=== PATIENT | male | born 1940 | race Caucasian/White ===

== ENCOUNTER 2018-05-16 17:15 | Observation (INO) ==
--- NOTE | 2018-05-16 18:31 | ED ---
HPI General Chief Complaint: Chest Pain Stated Complaint: chest pain Time Seen by Provider: 05/16/18 18:16 Source: patient and family Mode of arrival: ambulatory Limitations: no limitations History of Present Illness HPI narrative: Patient is a 77-year-old male presenting to the emergency room for evaluation of chest pain. Patient states that he was working in his yard around 10 AM this morning, shortly thereafter he developed a midsternal chest pain that radiates across his anterior chest wall. Patient denies any radiation to his arm or jaw, no diaphoresis, no nausea, no abdominal pain, no back pain, no headache or dizziness. He reports that the pain is a 2 out of 10 now. Pain is worse with exertion. Patient states that he feels short of breath when he exerts himself however this is his baseline. Patient reports a history of aortic stenosis, hypertension, hyperlipidemia, diabetes. Patient is followed by Dr. Pitts. complaint: chest pain Complete Quality Measures for STEMI Alert Patients STEMI Alert: No Onset (ago): hour(s) Duration: constant Onset: during exertion Pain location: substernal, left chest and right chest Severity: moderate Severity scale (1-10): 2 Quality: tightness Relieving factors: nothing Exacerbating factors: exertion Treatments prior to arrival chest pain: aspirin (81 mg) Related Data Home Medications Medication Instructions Recorded Confirmed albuterol sulfate [Ventolin HFA] 2 puff INHALATION Q4H PRN 05/16/18 05/16/18 allopurinol 100 mg PO BID 05/16/18 05/16/18 amoxicillin-pot clavulanate 1 tab PO Q12H 05/16/18 05/16/18 [Augmentin] ascorbic acid (vitamin C) [Vitamin 500 mg PO BID 05/16/18 05/16/18 C] aspirin 81 mg PO DAILY 05/16/18 05/16/18 atorvastatin [Lipitor] 20 mg PO DAILY 05/16/18 05/16/18 coenzyme Q10 [Co Q-10] 100 mg PO DAILY 05/16/18 05/16/18 losartan 100 mg PO DAILY 05/16/18 05/16/18 magnesium 200 mg PO DAILY 05/16/18 05/16/18 metformin 1,000 mg PO BID 05/16/18 05/16/18 zinc gluconate 30 mg PO DAILY 05/16/18 05/16/18 Allergies Allergy/AdvReac Type Severity Reaction Status Date / Time No Known Allergies Allergy Uncoded 08/14/16 01:32 Review of Systems ROS: all other systems reviewed are negative [facility] Medical History Medical History Aortic stenosis (Acute) Diabetes type 2, controlled (Acute) Gout (Acute) Hypercholesteremia (Acute) Hypertension (Acute) Skin cancer (Acute) Surgical History Surgical History Hx of tonsillectomy (Acute) Social History Social History Substance History: No History of Abuse Second Hand Smoke Exposure: No Smoking Status: Former smoker Tobacco Type: Cigarettes How Often Do You Have a Drink Containing Alcohol: 4 or more times a week Recent Travel in [facility] within the Last 8 Weeks: No Recent Out of Country Travel within the Last 8 Weeks: No Immunization History Tetanus Immunization: >5 Years Hx Influenza Vaccine This Season: No Exam Narrative Exam Narrative: GENERAL: Overweight, well-developed, alert elderly gentleman. Presenting in no acute distress. SKIN: Focused skin assessment warm/dry. HEAD: Atraumatic. Normocephalic. EYES: Pupils equal and round. No scleral icterus. No injection or drainage. ENT: No nasal bleeding or discharge. Mucous membranes pink and moist. NECK: Trachea midline. No JVD. CARDIOVASCULAR: Regular rate and rhythm. 3/6 systolic murmur appreciated. RESPIRATORY: No accessory muscle use. Clear to auscultation. Breath sounds equal bilaterally. GASTROINTESTINAL: Abdomen soft, non-tender, nondistended. Hepatic and splenic margins not palpable. MUSCULOSKELETAL: No obvious deformities. No clubbing. No cyanosis. No edema. NEUROLOGICAL: Awake and alert. No obvious cranial nerve deficits. Motor grossly within normal limits. Normal speech. PSYCHIATRIC: Appropriate mood and affect; insight and judgment normal. Course Initial Documented Vital Signs Temperature 98.5 F 05/16/18 17:30 Pulse Rate 78 05/16/18 17:30 Respiratory Rate 13 05/16/18 17:30 Blood Pressure 161/67 H 05/16/18 17:30 Pulse Oximetry 97 05/16/18 17:30 Last Documented Vital Signs Temperature 98.5 F 05/16/18 17:30 Pulse Rate 74 05/16/18 19:30 Respiratory Rate 18 05/16/18 19:30 Blood Pressure 161/72 H 05/16/18 19:30 Pulse Oximetry 97 05/16/18 19:30 Medical Decision Making MDM Narrative Medical decision making narrative: Patient is well-appearing 77-year-old male presenting for evaluation of chest pain that started after he was doing yard work this morning. Patient's vital signs are stable, labs and imaging ordered and pending. IV access is established he was placed on telemetry monitoring and continuous pulse oximetry. Labs reviewed, no acute findings identified. Chest x-ray shows no acute disease. Patient was placed in the chest pain center for further observation. Plan of care was discussed with my attending physician. Admit orders placed. Patient and advised on plan of care and are agreeable. Medical Screen Exam Complete: Yes Emergency Medical Condition: Yes Differential Diagnosis Differential Diagnosis: ACS versus USA versus bronchitis versus pneumonia versus arrhythmia versus metabolic abnormality versus other Medical Records Medical records reviewed: Yes I reviewed the patient's medical records. Lab Data Lab results reviewed: Yes I reviewed the patient's lab results. Result diagrams: 05/16/18 18:00 05/16/18 18:00 Lab Results 05/16/18 05/16/18 05/16/18 Range/Units 18:00 18:00 18:00 WBC 9.1 (4.0-11.0) th/mm3 RBC 4.47 L (4.50-5.90) mil/mm3 Hgb 14.2 (13.0-17.0) gm/dL Hct 41.7 (39.0-51.0) % MCV 93.4 (80.0-100.0) fL MCH 31.7 (27.0-34.0) pg MCHC 33.9 (32.0-36.0) % RDW 14.0 (11.6-17.2) % Plt Count 255 (150-450) th/mm3 MPV 7.3 (7.0-11.0) fL Neut % (Auto) 66.8 (16.0-70.0) % Lymph % (Auto) 17.9 (9.0-44.0) % Brown % (Auto) 8.2 H (0.0-8.0) % Eos % (Auto) 6.2 H (0.0-4.0) % Baso % (Auto) 0.9 (0.0-2.0) % Neut # (Auto) 6.1 (1.8-7.7) th/mm3 Lymph # (Auto) 1.6 (1.0-4.8) th/mm3 Brown # (Auto) 0.7 (0.0-0.9) th/mm3 Eos # (Auto) 0.6 H (0.0-0.4) th/mm3 Baso # (Auto) 0.1 (0.0-0.2) th/mm3 WBC Differential . Differential Comment Auto diff final PT 10.6 (9.8-11.6) sec INR 1.0 Ratio APTT 27.3 (24.3-30.1) sec Sodium 139 (136-145) meq/L Potassium 4.3 (3.5-5.1) meq/L Chloride 105 (98-107) meq/L Carbon Dioxide 29.5 (21.0-32.0) meq/L Anion Gap 5 (5-15) meq/L BUN 20 H (7-18) mg/dL Creatinine 1.20 (0.60-1.30) mg/dL Estimated GFR 59 L (>89) mL/min Random Glucose 109 H (74-106) mg/dL Calcium 9.7 (8.5-10.1) mg/dL Magnesium 2.2 (1.5-2.5) mg/dL Total Bilirubin 0.4 (0.2-1.0) mg/dL AST 18 (15-37) U/L ALT 24 (12-78) U/L Alkaline Phosphatase 55 (45-117) U/L Total Creatine Kinase 285 (39-308) U/L CK-MB (CK-2) 3.7 H (0.5-3.6) ng/mL Troponin I Less than 0.02 L (0.02-0.05) ng/mL Total Protein 7.9 (6.4-8.2) g/dL Albumin 4.1 (3.4-5.0) g/dL Lipase 107 (73-393) U/L Imaging Data Radiologist's impression: Chest X-Ray 05/16/18 17:56 CONCLUSION: The lungs are clear. Discharge Plan Discharge Disposition Patient Disposition: 30 Still Patient Discharge Condition Condition: Stable Discharge Details Diagnosis: Atypical chest pain Physicians Team ED Provider: Patricia Cabrera ED Midlevel Provider: Mikala Andrews Primary Care Provider: David Barfield Rxs /Orders / Referrals /Forms Prescriptions: No Action metformin 500 mg Tablet 1,000 mg PO BID RF: 0 atorvastatin [Lipitor] 20 mg Tablet 20 mg PO DAILY RF: 0 allopurinol 100 mg Tablet 100 mg PO BID RF: 0 zinc gluconate 10 mg Lozenge 30 mg PO DAILY RF: 0 ascorbic acid (vitamin C) [Vitamin C] 500 mg Tablet 500 mg PO BID RF: 0 aspirin 81 mg Tablet,Chewable 81 mg PO DAILY RF: 0 albuterol sulfate [Ventolin HFA] 90 mcg/actuation Hfa Aerosol Inhaler 2 puff INHALATION Q4H PRN (Reason: Shortness Of Breath) RF: 0 losartan 100 mg Tablet 100 mg PO DAILY RF: 0 amoxicillin-pot clavulanate [Augmentin] 875-125 mg Tablet 1 tab PO Q12H RF: 0 magnesium 200 mg Tablet 200 mg PO DAILY RF: 0 coenzyme Q10 [Co Q-10] 100 mg Capsule 100 mg PO DAILY RF: 0 Discharge Instructions Patient Printed Instructions: Chest Pain (ED) Discharge Interventions Interventions: Vital Signs Last Done: 05/16/18 18:11 Status ED Status: Admitted Observation Patient
[2018-05-16 18:34] LABS: Baso # (Auto) 0.1 th/mm3 (0.0-0.2); Baso % (Auto) 0.9 % (0.0-2.0); Eos # (Auto) 0.6 th/mm3 (0.0-0.4); Eos % (Auto) 6.2 % (0.0-4.0); Hematocrit 41.7 % (39.0-51.0); Hemoglobin 14.2 gm/dL (13.0-17.0); Lymph # (Auto) 1.6 th/mm3 (1.0-4.8); Lymph % (Auto) 17.9 % (9.0-44.0); Mean Corpuscular HGB Conc 33.9 % (32.0-36.0); Mean Corpuscular Hemoglobin 31.7 pg (27.0-34.0); Mean Corpuscular Volume 93.4 fL (80.0-100.0); Mean Platelet Volume 7.3 fL (7.0-11.0); Mono # (Auto) 0.7 th/mm3 (0.0-0.9); Mono % (Auto) 8.2 % (0.0-8.0); Neut # (Auto) 6.1 th/mm3 (1.8-7.7); Neut % (Auto) 66.8 % (16.0-70.0); Platelet Count 255 th/mm3 (150-450); Red Blood Count 4.47 mil/mm3 (4.50-5.90); White Blood Count 9.1 th/mm3 (4.0-11.0)
[2018-05-16 18:48] LABS: Activated Partial Thrombo Time 27.3 sec (24.3-30.1); Prothrombin Time 10.6 sec (9.8-11.6)
[2018-05-16 19:00] LABS: Alanine Aminotransferase 24 U/L (12-78); Albumin 4.1 g/dL (3.4-5.0); Anion Gap 5 meq/L (5-15); Aspartate Aminotransferase 18 U/L (15-37); Blood Urea Nitrogen 20 mg/dL (7-18); Calcium 9.7 mg/dL (8.5-10.1); Carbon Dioxide 29.5 meq/L (21.0-32.0); Chloride 105 meq/L (98-107); Glomerular Filtration Rate 59 mL/min (>89); Glucose,Random 109 mg/dL (74-106); Lipase 107 U/L (73-393); Magnesium 2.2 mg/dL (1.5-2.5); Potassium 4.3 meq/L (3.5-5.1); Sodium 139 meq/L (136-145)
[2018-05-16 19:04] LABS: Alkaline Phosphatase 55 U/L (45-117); Creatine Kinase 285 U/L (39-308); Total Protein 7.9 g/dL (6.4-8.2)
--- NOTE | 2018-05-16 19:07 | XR ---
EXAM DATE: 05/16/2018 6:47 PM EDT AGE/SEX: 77 years / Male INDICATIONS: Chest pain. CLINICAL DATA: This is the patient's initial encounter. Patient reports that signs and symptoms have been present for 1 day and indicates a pain score of 5/10. MEDICAL/SURGICAL HISTORY: . Hypertension. Diabetes mellitus type II. None. COMPARISON: POI, XR CHEST PA AND LAT, 04/04/2018. . FINDINGS: A single AP view of the chest demonstrates the lungs to be symmetrically aerated without evidence of mass, infiltrate or effusion. The cardiomediastinal contours are unremarkable. Osseous structures a re intact. CONCLUSION: The lungs are clear. Electronically signed by: Jameson Haq MD 05/16/2018 7:06 PM EDT
[2018-05-16 19:16] LABS: Creatine Kinase MB 3.7 ng/mL (0.5-3.6)
[2018-05-16] MEDS ORDERED: Acetaminophen 500 MG Tablet PO PRN (20:02)
[2018-05-16] MEDS ORDERED: Iohexol 350 MG/ML 100 ML Vial (for Cath Lab) IVCONTRAST ONE (20:04)
[2018-05-17 01:04] LABS: Creatine Kinase 259 U/L (39-308)
[2018-05-17 05:03] LABS: Troponin I 0.02 ng/mL (0.02-0.05)
--- NOTE | 2018-05-17 08:23 | ECG ---
Date Performed: 05/16/2018 Time Performed: 18:00:06 PTAGE: 77 years EKG: Sinus rhythm NONSPECIFIC T-WAVE ABNORMALITY BORDERLINE ECG Since PREVIOUS TRACING , no significant change noted DOCTOR: Tracy Rodriguez Interpretating Date/Time 05/17/2018 08:22:30
--- NOTE | 2018-05-17 08:27 | ECG ---
Date Performed: 05/17/2018 Time Performed: 04:53:02 PTAGE: 77 years EKG: Sinus rhythm NONSPECIFIC T-WAVE ABNORMALITY ABNORMAL ECG Since PREVIOUS TRACING , no significant change noted PREVIOUS TRACIN05/16/2018 18.00 DOCTOR: Tracy Rodriguez Interpretating Date/Time 05/17/2018 08:26:09
[2018-05-17] MEDS ORDERED: Non-Formulary Drug (Losartan [Losartan] 100 MG) PO SCH (09:00)
[2018-05-17] MEDS ORDERED: Aspirin 325 MG Tablet PO SCH (09:00)
--- NOTE | 2018-05-17 09:26 | P.HPCA ---
<Rich Castillo - Last Filed: 05/17/18 09:18> History of Present Illness Primary Care Physician: David Barfield MD Chief Complaint: Chest pain History of Present Illness: This is a 77-year-old male the presents to ED with a stated history of severe aortic stenosis presents to ED with complaint of chest discomfort. Patient states he has been followed by Dr. Pitts for the aortic stenosis. States that he has been getting short of breath for some time with exertion or with activities but never chest discomfort. Yesterday was the first time he developed a tightness in his chest. States is across the chest after he is doing some yard work. States lasted for a few hours. Shortness of breath was worsened. States he has not had recent stress testing. Cannot recall prior cardiac catheterization. Has had recent echo and states that revealed severe aortic stenosis. There is family history of CAD. Patient does not smoke. - Diagnosis (1) Chest pain (2) Aortic stenosis (3) Hypertension (4) Hyperlipidemia (5) Diabetes Review of Systems General: Patient denies fevers, chills, and recent travel. HEENT: Patient denies headache, sore throat, difficulty swallowing. Cardiovascular: Has the chest discomfort as mentioned above. Denies sensation of heart beating rapidly or irregularly. No syncope. Denies diaphoresis. Respiratory: Shortness of breath with activity. Denies inspirational chest discomfort. Denies coughing wheezing or hemoptysis. GI: Patient denies nausea, vomiting, diarrhea, abdominal pain, bloody stools. Musculoskeletal: Patient denies joint pain or edema. Denies calf pain or edema. Neurovascular: Patient denies numbness, tingling, weakness in extremities. Denies headache. Endocrine: Denies polyuria and polydipsia. Hematologic: Denies easy bruising. Skin: Denies rash or itching. PMFSH - History History Provided By: Patient - Medical History Medical History: Medical History (Last Reviewed 05/16/18 @ 18:53 by DANIA Maki) Aortic stenosis Diabetes type 2, controlled Gout Hypercholesteremia Hypertension Skin cancer - Surgical History Surgical History: Surgical History (Last Reviewed 05/16/18 @ 18:53 by DANIA Maki) Hx of tonsillectomy - Tobacco History Second Hand Smoke Exposure: No Tobacco Use In Past 30 Days: No Smoking Status: Former smoker Tobacco Type: Cigarettes - Alcohol History How Often Do You Have a Drink Containing Alcohol: 4 or more times a week - Substance Use History Substance History: No History of Abuse - Travel History Recent Travel in the [place] Within the Last 8 Weeks: No Recent Travel Out of the Country Within the Last 8 Weeks: No - Immunization History Tetanus Immunization: >5 Years Hx Influenza Vaccine This Season: No Medications and Allergies Allergies Allergy/AdvReac Type Severity Reaction Status Date / Time No Known Allergies Allergy Uncoded 08/14/16 01:32 Home Medications Medication Instructions Recorded Confirmed Type allopurinol 100 mg PO BID 05/16/18 05/16/18 History ascorbic acid (vitamin C) [Vitamin 500 mg PO BID 05/16/18 05/16/18 History C] aspirin 81 mg PO DAILY 05/16/18 05/16/18 History atorvastatin [Lipitor] 20 mg PO HS 05/16/18 05/17/18 History coenzyme Q10 [Co Q-10] 100 mg PO DAILY 05/16/18 05/16/18 History losartan 100 mg PO DAILY 05/16/18 05/16/18 History magnesium 200 mg PO DAILY 05/16/18 05/16/18 History metformin 1,000 mg PO BID 05/16/18 05/16/18 History zinc gluconate 30 mg PO DAILY 05/16/18 05/16/18 History Active Medications: Active Medications Acetaminophen (Tylenol) 500 mg PO Q4H PRN PRN Reason: HEADACHE Aspirin (Aspirin) 325 mg PO DAILY [facility] Atorvastatin Calcium (Lipitor) 20 mg PO DAILY [facility] Last Admin: 05/17/18 08:58 Dose: Not Given Insulin Human Regular (Novolin R Correctional Sugar Inj) 0 units SQ ACHS [facility]; Protocol Nitroglycerin (Nitrostat Sl) 0.4 mg SL Q5M PRN PRN Reason: CHEST PAIN Non-Formulary Medication (Losartan [Losartan]) 100 mg PO DAILY [facility] Ondansetron HCl (Zofran Inj) 4 mg IV.PUSH Q6H PRN PRN Reason: NAUSEA Pantoprazole Sodium (Protonix) 40 mg PO DAILY [facility] Last Admin: 05/17/18 08:51 Dose: 40 mg Sodium Chloride (Ns Flush) 2 ml IV.FLUSH UNSCH PRN PRN Reason: FLUSH AFTER USING IV ACCESS Sodium Chloride (Ns Flush) 2 ml IV.FLUSH BID [facility] Last Admin: 05/17/18 08:52 Dose: 2 ml Sodium Chloride (Ns Flush) 2 ml IV.FLUSH PRN PRN PRN Reason: FLUSH AFTER USING IV ACCESS Exam Vital signs: Vital Signs 05/16/18 17:30 05/16/18 17:32 05/16/18 18:02 Temperature 98.5 F Pulse Rate 78 77 Respiratory Rate 13 18 Blood Pressure 161/67 H 144/82 H Pulse Oximetry 97 96 96 05/16/18 18:11 05/16/18 19:30 05/17/18 00:00 Temperature 97.6 F Pulse Rate 76 74 71 Respiratory Rate 18 18 18 Blood Pressure 144/82 H 161/72 H 175/73 H Pulse Oximetry 96 97 95 05/17/18 04:00 05/17/18 08:15 Temperature 98.2 F 98.0 F Pulse Rate 63 76 Respiratory Rate 16 16 Blood Pressure 137/63 142/66 H Pulse Oximetry 98 98 Intake & Output 05/16/18 05/17/18 05/17/18 18:59 06:59 18:59 Intake Total 0 / 0 Balance 0 / 0 Weight 106.141 kg Intake: Oral 0 / 0 Other: # Voids 1 Weight On Admission 106.141 kg Narrative: GENERAL: This is a well-nourished, well-developed patient, in no apparent distress. Patient speaks in clear complete sentences. Patient is pleasant. HEENT: Head is atraumatic and normocephalic. Neck is supple without lymphadenopathy and trachea is midline. No JVD or carotid bruits. CARDIOVASCULAR: Grade 4 to 5 aortic murmur. Regular rate and rhythm without gallops, or rubs. RESPIRATORY: Clear to auscultation. Breath sounds equal bilaterally. No wheezes , rales, or rhonchi. Chest wall is nontender. No use of accessory muscles. GASTROINTESTINAL: Abdomen is nontender, nondistended. Abdomen soft. No obvious pulsatile mass or bruit. No CVA tenderness. Strong femoral pulses bilaterally. Normal bowel sounds in all quadrants. MUSCULOSKELETAL: Patient is moving upper and lower extremities freely. No calf tenderness or edema, no Homans sign. Strong pulses in upper and lower extremities. NEUROLOGICAL: Patient is alert and oriented. Cranial nerves 2-12 are grossly intact. No focal deficits and speech is clear. SKIN: No rash and turgor is normal. Results 05/16/18 18:00 05/16/18 18:00 Cardiac Enzymes 05/16/18 05/17/18 05/17/18 Range/Units 18:00 00:23 04:30 AST 18 (15-37) U/L CK-MB (CK-2) 3.7 H (0.5-3.6) ng/mL Troponin I Less than 0.02 L Less than 0.02 L 0.02 (0.02-0.05) ng/mL Coagulation 05/16/18 Range/Units 18:00 PT 10.6 (9.8-11.6) sec APTT 27.3 (24.3-30.1) sec CBC 05/16/18 Range/Units 18:00 WBC 9.1 (4.0-11.0) th/mm3 RBC 4.47 L (4.50-5.90) mil/mm3 Hgb 14.2 (13.0-17.0) gm/dL Hct 41.7 (39.0-51.0) % Plt Count 255 (150-450) th/mm3 Neut # (Auto) 6.1 (1.8-7.7) th/mm3 Lymph # (Auto) 1.6 (1.0-4.8) th/mm3 Logan # (Auto) 0.7 (0.0-0.9) th/mm3 Eos # (Auto) 0.6 H (0.0-0.4) th/mm3 Baso # (Auto) 0.1 (0.0-0.2) th/mm3 Comprehensive Metabolic Panel 05/16/18 Range/Units 18:00 Sodium 139 (136-145) meq/L Potassium 4.3 (3.5-5.1) meq/L Chloride 105 (98-107) meq/L Carbon Dioxide 29.5 (21.0-32.0) meq/L BUN 20 H (7-18) mg/dL Creatinine 1.20 (0.60-1.30) mg/dL Calcium 9.7 (8.5-10.1) mg/dL AST 18 (15-37) U/L ALT 24 (12-78) U/L Alkaline Phosphatase 55 (45-117) U/L Total Protein 7.9 (6.4-8.2) g/dL Albumin 4.1 (3.4-5.0) g/dL Intake and Output 05/16/18 05/17/18 05/17/18 22:59 06:59 14:59 Intake Total 0 / 0 Balance 0 / 0 Intake: Oral 0 / 0 Other: # Voids 1 Weight 106.141 kg Weight On Admission 106.141 kg EKG interpretations - EKG EKG shows: sinus rhythm (EKGs a sinus rhythm without significant ST segment depressions or elevations.) Caprini VTE Risk Assessment Caprini VTE Risk Assessment: Moderate/High Risk (score >= 2) Caprini Risk Assessment Model: Point Value = 1 Point Value = 2 Point Value = 3 Point Value = 5 Age 41-60 Minor surgery BMI > 25 kg/m2 Swollen legs Varicose veins or History of unexplained or recurrent spontaneous Oral contraceptives or hormone replacement Sepsis (< 1 month) Serious lung disease, including pneumonia (< 1 month) Abnormal pulmonary function Acute myocardial infarction Congestive heart failure (< 1 month) History of inflammatory bowel disease Medical patient at bed rest Age 61-74 Arthroscopic surgery Major open surgery (> 45 min) Laparoscopic surgery (> 45 min) Malignancy Confined to bed (> 72 hours) Immobilizing plaster cast Central venous access Age >= 75 History of VTE Family history of VTE Factor V Leiden Prothrombin [id number] Lupus anticoagulant Anticardiolipin antibodies Elevated serum homocysteine Heparin-induced thrombocytopenia Other congenital or acquired thrombophilia Stroke (< 1 month) Elective arthroplasty Hip, pelvis, or leg fracture Acute spinal cord injury (< 1 month) Prophylaxis Regimen: Total Risk Factor Score Risk Level Prophylaxis Regimen 0-1 Low Early ambulation 2 Moderate Order ONE of the following: *Sequential Compression Device (SCD) *Heparin 5000 units SQ BID 3-4 Higher Order ONE of the following medications: *Heparin 5000 units SQ TID *Enoxaparin/Lovenox 40 mg SQ daily (WT < 150 kg, CrCl > 30 mL/min) *Enoxaparin/Lovenox 30 mg SQ daily (WT < 150 kg, CrCl > 10-29 mL/min) *Enoxaparin/Lovenox 30 mg SQ BID (WT < 150 kg, CrCl > 30 mL/min) AND/OR *Sequential Compression Device (SCD) 5 or more Highest Order ONE of the following medications: *Heparin 5000 units SQ TID (Preferred with Epidurals) *Enoxaparin/Lovenox 40 mg SQ daily (WT < 150 kg, CrCl > 30 mL/min) *Enoxaparin/Lovenox 30 mg SQ daily (WT < 150 kg, CrCl > 10-29 mL/min) *Enoxaparin/Lovenox 30 mg SQ BID (WT < 150 kg, CrCl > 30 mL/min) AND *Sequential Compression Device (SCD) Assessment and Plan - Assessment (1) Chest pain Code(s): R07.9 - Chest pain, unspecified Status: Acute (2) Aortic stenosis Code(s): I35.0 - Nonrheumatic aortic (valve) stenosis Status: Acute (3) Hypertension Code(s): I10 - Essential (primary) hypertension Status: Acute (4) Hyperlipidemia Code(s): E78.5 - Hyperlipidemia, unspecified Status: Acute (5) Diabetes Code(s): E11.9 - Type 2 diabetes mellitus without complications Status: Acute - Plan * Chest pain: Patient has had serial cardiac enzymes and EKGs for ruling out purposes. He was seen by Dr. Rodriguez of cardiology in the chest pain center. He has severe aortic stenosis. Discussed with Dr. Pitts, patient will have a heart catheterization today and further plan pending that result. * Aortic stenosis: Patient will be evaluated by his [place] with heart catheterization today further plan pending 's evaluation. * Hypertension: Continue medication. * Hyperlipidemia: Continue medication. * Diabetes: Hold metformin. Have sliding scale insulin coverage. Patient is stable at this time. He is agreeable to this plan. <Sonia Pitts - Last Filed: 05/17/18 10:12> History of Present Illness Primary Care Physician: David Barfield MD [facility] - Medical History Medical History: Medical History (Last Reviewed 05/16/18 @ 18:53 by DANIA Maki) Aortic stenosis Diabetes type 2, controlled Gout Hypercholesteremia Hypertension Skin cancer - Surgical History Surgical History: Surgical History (Last Reviewed 05/16/18 @ 18:53 by DANIA Maki) Hx of tonsillectomy Medications and Allergies Active Medications: Active Medications Acetaminophen (Tylenol) 500 mg PO Q4H PRN PRN Reason: HEADACHE Aspirin (Aspirin) 325 mg PO DAILY [facility] Last Admin: 05/17/18 09:56 Dose: 325 mg Atorvastatin Calcium (Lipitor) 20 mg PO DAILY [facility] Last Admin: 05/17/18 08:58 Dose: Not Given Insulin Human Regular (Novolin R Correctional Sugar Inj) 0 units SQ ACHS [facility]; Protocol Losartan Potassium (Cozaar) 100 mg PO DAILY [facility] Last Admin: 05/17/18 09:55 Dose: 100 mg Nitroglycerin (Nitrostat Sl) 0.4 mg SL Q5M PRN PRN Reason: CHEST PAIN Ondansetron HCl (Zofran Inj) 4 mg IV.PUSH Q6H PRN PRN Reason: NAUSEA Pantoprazole Sodium (Protonix) 40 mg PO DAILY [facility] Last Admin: 05/17/18 08:51 Dose: 40 mg Sodium Chloride (Ns Flush) 2 ml IV.FLUSH UNSCH PRN PRN Reason: FLUSH AFTER USING IV ACCESS Sodium Chloride (Ns Flush) 2 ml IV.FLUSH BID [facility] Last Admin: 05/17/18 08:52 Dose: 2 ml Sodium Chloride (Ns Flush) 2 ml IV.FLUSH PRN PRN PRN Reason: FLUSH AFTER USING IV ACCESS Exam Vital signs: Vital Signs 05/16/18 17:30 05/16/18 17:32 05/16/18 18:02 Temperature 98.5 F Pulse Rate 78 77 Respiratory Rate 13 18 Blood Pressure 161/67 H 144/82 H Pulse Oximetry 97 96 96 05/16/18 18:11 05/16/18 19:30 05/17/18 00:00 Temperature 97.6 F Pulse Rate 76 74 71 Respiratory Rate 18 18 18 Blood Pressure 144/82 H 161/72 H 175/73 H Pulse Oximetry 96 97 95 05/17/18 04:00 05/17/18 08:15 Temperature 98.2 F 98.0 F Pulse Rate 63 76 Respiratory Rate 16 16 Blood Pressure 137/63 142/66 H Pulse Oximetry 98 98 Intake & Output 05/16/18 05/17/18 05/17/18 18:59 06:59 18:59 Intake Total 0 / 0 Balance 0 / 0 Weight 106.141 kg Intake: Oral 0 / 0 Other: # Voids 1 Weight On Admission 106.141 kg Results 05/16/18 18:00 05/16/18 18:00 Cardiac Enzymes 05/16/18 05/17/18 05/17/18 Range/Units 18:00 00:23 04:30 AST 18 (15-37) U/L CK-MB (CK-2) 3.7 H (0.5-3.6) ng/mL Troponin I Less than 0.02 L Less than 0.02 L 0.02 (0.02-0.05) ng/mL Coagulation 05/16/18 Range/Units 18:00 PT 10.6 (9.8-11.6) sec APTT 27.3 (24.3-30.1) sec CBC 05/16/18 Range/Units 18:00 WBC 9.1 (4.0-11.0) th/mm3 RBC 4.47 L (4.50-5.90) mil/mm3 Hgb 14.2 (13.0-17.0) gm/dL Hct 41.7 (39.0-51.0) % Plt Count 255 (150-450) th/mm3 Neut # (Auto) 6.1 (1.8-7.7) th/mm3 Lymph # (Auto) 1.6 (1.0-4.8) th/mm3 Logan # (Auto) 0.7 (0.0-0.9) th/mm3 Eos # (Auto) 0.6 H (0.0-0.4) th/mm3 Baso # (Auto) 0.1 (0.0-0.2) th/mm3 Comprehensive Metabolic Panel 05/16/18 Range/Units 18:00 Sodium 139 (136-145) meq/L Potassium 4.3 (3.5-5.1) meq/L Chloride 105 (98-107) meq/L Carbon Dioxide 29.5 (21.0-32.0) meq/L BUN 20 H (7-18) mg/dL Creatinine 1.20 (0.60-1.30) mg/dL Calcium 9.7 (8.5-10.1) mg/dL AST 18 (15-37) U/L ALT 24 (12-78) U/L Alkaline Phosphatase 55 (45-117) U/L Total Protein 7.9 (6.4-8.2) g/dL Albumin 4.1 (3.4-5.0) g/dL Intake and Output 05/16/18 05/17/1805/17/18 22:59 06:59 14:59 Intake Total 0 / 0 Balance 0 / 0 Intake: Oral 0 / 0 Other: # Voids 1 Weight 106.141 kg Weight On Admission 106.141 kg Caprini VTE Risk Assessment Caprini Risk Assessment Model: Point Value = 1 Point Value = 2 Point Value = 3 Point Value = 5 Age 41-60 Minor surgery BMI > 25 kg/m2 Swollen legs Varicose veins or History of unexplained or recurrent spontaneous Oral contraceptives or hormone replacement Sepsis (< 1 month) Serious lung disease, including pneumonia (< 1 month) Abnormal pulmonary function Acute myocardial infarction Congestive heart failure (< 1 month) History of inflammatory bowel disease Medical patient at bed rest Age 61-74 Arthroscopic surgery Major open surgery (> 45 min) Laparoscopic surgery (> 45 min) Malignancy Confined to bed (> 72 hours) Immobilizing plaster cast Central venous access Age >= 75 History of VTE Family history of VTE Factor V Leiden Prothrombin [id number] Lupus anticoagulant Anticardiolipin antibodies Elevated serum homocysteine Heparin-induced thrombocytopenia Other congenital or acquired thrombophilia Stroke (< 1 month) Elective arthroplasty Hip, pelvis, or leg fracture Acute spinal cord injury (< 1 month) Prophylaxis Regimen: Total Risk Factor Score Risk Level Prophylaxis Regimen 0-1 Low Early ambulation 2 Moderate Order ONE of the following: *Sequential Compression Device (SCD) *Heparin 5000 units SQ BID 3-4 Higher Order ONE of the following medications: *Heparin 5000 units SQ TID *Enoxaparin/Lovenox 40 mg SQ daily (WT < 150 kg, CrCl > 30 mL/min) *Enoxaparin/Lovenox 30 mg SQ daily (WT < 150 kg, CrCl > 10-29 mL/min) *Enoxaparin/Lovenox 30 mg SQ BID (WT < 150 kg, CrCl > 30 mL/min) AND/OR *Sequential Compression Device (SCD) 5 or more Highest Order ONE of the following medications: *Heparin 5000 units SQ TID (Preferred with Epidurals) *Enoxaparin/Lovenox 40 mg SQ daily (WT < 150 kg, CrCl > 30 mL/min) *Enoxaparin/Lovenox 30 mg SQ daily (WT < 150 kg, CrCl > 10-29 mL/min) *Enoxaparin/Lovenox 30 mg SQ BID (WT < 150 kg, CrCl > 30 mL/min) AND *Sequential Compression Device (SCD) Assessment and Plan - Plan Risk of cath reviewed in detail will proceed EUSE[employer] still having chest discomfort , understands risk of stroke etc.
--- NOTE | 2018-05-17 11:10 | P.CONCA ---
<Shade,December - Last Filed: 05/17/18 11:00> History of Present Illness Service: Cardiology Reason for Consult: Chest pain Primary Care Provider: David Barfield MD Chief Complaint: Chest pain History of Present Illness: Pleasant 77-year-old male known to our practice with a past cardiac history of heart murmur he was recently seen in my office and had an echocardiogram that revealed moderate to severe aortic stenosis, with an aortic valve area of 0.8 cm2, and an aortic valve max peak gradient of 58mmhg. He called our office yesterday stating that he was having some chest tightness that occurred after working outside, pain did not resolve with rest, he was instructed to go to the ER. Upon examination this morning patient reports having mild chest tightness. He denies any significant shortness of breath or bilateral lower extremity edema, he does have occasional dizziness. All options discussed in detail with patient including medical management verses heart catheterization and valve replacementvalve repair. Review of Systems All other systems reviewed negative except as stated in HPI Constitutional: Reports fatigue Cardiovascular: Reports chest pain, Reports chest pain at rest, Reports chest pain with activity, Reports lightheadedness PMFSH - History History Provided By: Patient - Medical History Medical History: Medical History (Last Reviewed 05/16/18 @ 18:53 by DANIA Maki) Aortic stenosis Diabetes type 2, controlled Gout Hypercholesteremia Hypertension Skin cancer - Surgical History Surgical History: Surgical History (Last Reviewed 05/16/18 @ 18:53 by DANIA Maki) Hx of tonsillectomy - Tobacco History Second Hand Smoke Exposure: No Tobacco Use In Past 30 Days: No Smoking Status: Former smoker Tobacco Type: Cigarettes - Alcohol History How Often Do You Have a Drink Containing Alcohol: 4 or more times a week - Substance Use History Substance History: No History of Abuse - Travel History Recent Travel in the [place] Within the Last 8 Weeks: No Recent Travel Out of the Country Within the Last 8 Weeks: No - Immunization History Tetanus Immunization: >5 Years Hx Influenza Vaccine This Season: No Medications and Allergies Allergies Allergy/AdvReac Type Severity Reaction Status Date / Time No Known Allergies Allergy Uncoded 08/14/16 01:32 Home Medications Medication Instructions Recorded Confirmed Type allopurinol 100 mg PO BID 05/16/18 05/16/18 History ascorbic acid (vitamin C) [Vitamin 500 mg PO BID 05/16/18 05/16/18 History C] aspirin 81 mg PO DAILY 05/16/18 05/16/18 History atorvastatin [Lipitor] 20 mg PO HS 05/16/18 05/17/18 History coenzyme Q10 [Co Q-10] 100 mg PO DAILY 05/16/18 05/16/18 History losartan 100 mg PO DAILY 05/16/18 05/16/18 History magnesium 200 mg PO DAILY 05/16/18 05/16/18 History metformin 1,000 mg PO BID 05/16/18 05/16/18 History zinc gluconate 30 mg PO DAILY 05/16/18 05/16/18 History Active Medications: Active Medications Acetaminophen (Tylenol) 500 mg PO Q4H PRN PRN Reason: HEADACHE Aspirin (Aspirin) 325 mg PO DAILY [facility] Last Admin: 05/17/18 09:56 Dose: 325 mg Atorvastatin Calcium (Lipitor) 20 mg PO DAILY [facility] Last Admin: 05/17/18 08:58 Dose: Not Given Insulin Human Regular (Novolin R Correctional Sugar Inj) 0 units SQ ACHS [facility]; Protocol Losartan Potassium (Cozaar) 100 mg PO DAILY [facility] Last Admin: 05/17/18 09:55 Dose: 100 mg Nitroglycerin (Nitrostat Sl) 0.4 mg SL Q5M PRN PRN Reason: CHEST PAIN Ondansetron HCl (Zofran Inj) 4 mg IV.PUSH Q6H PRN PRN Reason: NAUSEA Pantoprazole Sodium (Protonix) 40 mg PO DAILY [facility] Last Admin: 05/17/18 08:51 Dose: 40 mg Sodium Chloride (Ns Flush) 2 ml IV.FLUSH UNSCH PRN PRN Reason: FLUSH AFTER USING IV ACCESS Sodium Chloride (Ns Flush) 2 ml IV.FLUSH BID [facility] Last Admin: 05/17/18 08:52 Dose: 2 ml Sodium Chloride (Ns Flush) 2 ml IV.FLUSH PRN PRN PRN Reason: FLUSH AFTER USING IV ACCESS Exam Vital signs: Vital Signs 05/16/18 17:30 05/16/18 17:32 05/16/18 18:02 Temperature 98.5 F Pulse Rate 78 77 Respiratory Rate 13 18 Blood Pressure 161/67 H 144/82 H Pulse Oximetry 97 96 96 05/16/18 18:11 05/16/18 19:30 05/17/18 00:00 Temperature 97.6 F Pulse Rate 76 74 71 Respiratory Rate 18 18 18 Blood Pressure 144/82 H 161/72 H 175/73 H Pulse Oximetry 96 97 95 05/17/18 04:00 05/17/18 08:15 Temperature 98.2 F 98.0 F Pulse Rate 63 76 Respiratory Rate 16 16 Blood Pressure 137/63 142/66 H Pulse Oximetry 98 98 Intake & Output 05/16/18 05/17/18 05/17/18 18:59 06:59 18:59 Intake Total 0 / 0 Balance 0 / 0 Weight 106.141 kg Intake: Oral 0 / 0 Other: # Voids 1 Weight On Admission 106.141 kg - Constitutional no acute distress - Routine HEENT Exam Head: Present: normocephalic, atraumatic Eye: Present: PERRL, normal accommodation ENT: Present: mucous membranes moist - Routine Neck Exam Present: supple, full ROM - Routine Respiratory Exam Present: CTA bilaterally - Routine Cardiovascular Exam Present: RRR - Routine Abdominal Exam Present: soft - Routine Extremities Exam Present: full ROM - Routine Skin Exam Present: intact - Routine Neurological Exam Present: alert, oriented X3 Results 05/16/18 18:00 05/16/18 18:00 Cardiac Enzymes 05/16/18 05/17/18 05/17/18 Range/Units 18:00 00:23 04:30 AST 18 (15-37) U/L CK-MB (CK-2) 3.7 H (0.5-3.6) ng/mL Troponin I Less than 0.02 L Less than 0.02 L 0.02 (0.02-0.05) ng/mL Coagulation 05/16/18 Range/Units 18:00 PT 10.6 (9.8-11.6) sec APTT 27.3 (24.3-30.1) sec CBC 05/16/18 Range/Units 18:00 WBC 9.1 (4.0-11.0) th/mm3 RBC 4.47 L (4.50-5.90) mil/mm3 Hgb 14.2 (13.0-17.0) gm/dL Hct 41.7 (39.0-51.0) % Plt Count 255 (150-450) th/mm3 Neut # (Auto) 6.1 (1.8-7.7) th/mm3 Lymph # (Auto) 1.6 (1.0-4.8) th/mm3 [place] # (Auto) 0.7 (0.0-0.9) th/mm3 Eos # (Auto) 0.6 H (0.0-0.4) th/mm3 Baso # (Auto) 0.1 (0.0-0.2) th/mm3 Comprehensive Metabolic Panel 05/16/18 Range/Units 18:00 Sodium 139 (136-145) meq/L Potassium 4.3 (3.5-5.1) meq/L Chloride 105 (98-107) meq/L Carbon Dioxide 29.5 (21.0-32.0) meq/L BUN 20 H (7-18) mg/dL Creatinine 1.20 (0.60-1.30) mg/dL Calcium 9.7 (8.5-10.1) mg/dL AST 18 (15-37) U/L ALT 24 (12-78) U/L Alkaline Phosphatase 55 (45-117) U/L Total Protein 7.9 (6.4-8.2) g/dL Albumin 4.1 (3.4-5.0) g/dL Intake and Output 05/16/18 05/17/18 05/17/18 22:59 06:59 14:59 Intake Total 0 / 0 Balance 0 / 0 Intake: Oral 0 / 0 Other: # Voids 1 Weight 106.141 kg Weight On Admission 106.141 kg Assessment and Plan - Plan Assessment Aortic Stenosis Echocardiogram 03/2018-EF 54%, LVH, LAE, and AC, MV leaflet thickening, aortic cusp calcification, moderate to severe aortic stenosis, aortic valve area of 0.8 cm2, AV max peak gradient=58mmhg, MVA=2.5cm2, mild mitral regurg, mild TR, trace PI. Plan -Patient continues to have chest tightness all options discussed in detail, including risk of bleeding stroke heart attack CT, etc. we will plan to proceed with heart catheterization today Risk of cath reviewed in detail will proceed EUSEBIO still having chest discomfort , understands risk of stroke etc. The patient was seen and evaluated by Dr. Pitts who completed face to face encounter. Discussed Condition With: Nurse, Dr. Pitts <Sonia Pitts - Last Filed: 05/17/18 14:16> History of Present Illness Primary Care Provider: David Barfield MD [facility] - Medical History Medical History: Medical History (Last Reviewed 05/16/18 @ 18:53 by DANIA Maki) Aortic stenosis Diabetes type 2, controlled Gout Hypercholesteremia Hypertension Skin cancer - Surgical History Surgical History: Surgical History (Last Reviewed 05/16/18 @ 18:53 by DANIA Maki) Hx of tonsillectomy Medications and Allergies Active Medications: Active Medications Acetaminophen (Tylenol) 500 mg PO Q4H PRN PRN Reason: HEADACHE Aspirin (Aspirin) 325 mg PO DAILY [facility] Last Admin: 05/17/18 09:56 Dose: 325 mg Atorvastatin Calcium (Lipitor) 20 mg PO DAILY [facility] Last Admin: 05/17/18 08:58 Dose: Not Given Insulin Human Regular (Novolin R Correctional Sugar Inj) 0 units SQ ACHS [facility]; Protocol Last Admin: 05/17/18 12:36 Dose: Not Given Losartan Potassium (Cozaar) 100 mg PO DAILY [facility] Last Admin: 05/17/18 09:55 Dose: 100 mg Nitroglycerin (Nitrostat Sl) 0.4 mg SL Q5M PRN PRN Reason: CHEST PAIN Ondansetron HCl (Zofran Inj) 4 mg IV.PUSH Q6H PRN PRN Reason: NAUSEA Pantoprazole Sodium (Protonix) 40 mg PO DAILY [facility] Last Admin: 05/17/18 08:51 Dose: 40 mg Sodium Chloride (Ns Flush) 2 ml IV.FLUSH UNSCH PRN PRN Reason: FLUSH AFTER USING IV ACCESS Sodium Chloride (Ns Flush) 2 ml IV.FLUSH BID [facility] Last Admin: 05/17/18 08:52 Dose: 2 ml Sodium Chloride (Ns Flush) 2 ml IV.FLUSH PRN PRN PRN Reason: FLUSH AFTER USING IV ACCESS Exam Vital signs: Vital Signs 05/16/18 17:30 05/16/18 17:32 05/16/18 18:02 Temperature 98.5 F Pulse Rate 78 77 Respiratory Rate 13 18 Blood Pressure 161/67 H 144/82 H Pulse Oximetry 97 96 96 05/16/18 18:11 05/16/18 19:30 05/17/18 00:00 Temperature 97.6 F Pulse Rate 76 74 71 Respiratory Rate 18 18 18 Blood Pressure 144/82 H 161/72 H 175/73 H Pulse Oximetry 96 97 95 05/17/18 04:00 05/17/18 08:00 05/17/18 08:15 Temperature 98.2 F 98.0 F Pulse Rate 63 76 76 Respiratory Rate 16 16 Blood Pressure 137/63 142/66 H Pulse Oximetry 98 98 05/17/18 12:00 Temperature 97.6 F Pulse Rate 76 Respiratory Rate 16 Blood Pressure 151/69 H Pulse Oximetry 97 Intake & Output 05/16/18 05/17/18 05/17/18 18:59 06:59 18:59 Intake Total 0 / 0 Balance 0 / 0 Weight 106.141 kg Intake: Oral 0 / 0 Other: # Voids 1 Weight On Admission 106.141 kg Results 05/16/18 18:00 05/16/18 18:00 Cardiac Enzymes 05/16/18 05/17/18 05/17/18 Range/Units 18:00 00:23 04:30 AST 18 (15-37) U/L CK-MB (CK-2) 3.7 H (0.5-3.6) ng/mL Troponin I Less than 0.02 L Less than 0.02 L 0.02 (0.02-0.05) ng/mL Coagulation 05/16/18 Range/Units 18:00 PT 10.6 (9.8-11.6) sec APTT 27.3 (24.3-30.1) sec CBC 05/16/18 Range/Units 18:00 WBC 9.1 (4.0-11.0) th/mm3 RBC 4.47 L (4.50-5.90) mil/mm3 Hgb 14.2 (13.0-17.0) gm/dL Hct 41.7 (39.0-51.0) % Plt Count 255 (150-450) th/mm3 Neut # (Auto) 6.1 (1.8-7.7) th/mm3 Lymph # (Auto) 1.6 (1.0-4.8) th/mm3 [place] # (Auto) 0.7 (0.0-0.9) th/mm3 Eos # (Auto) 0.6 H (0.0-0.4) th/mm3 Baso # (Auto) 0.1 (0.0-0.2) th/mm3 Comprehensive Metabolic Panel 05/16/18 Range/Units 18:00 Sodium 139 (136-145) meq/L Potassium 4.3 (3.5-5.1) meq/L Chloride 105 (98-107) meq/L Carbon Dioxide 29.5 (21.0-32.0) meq/L BUN 20 H (7-18) mg/dL Creatinine 1.20 (0.60-1.30) mg/dL Calcium 9.7 (8.5-10.1) mg/dL AST 18 (15-37) U/L ALT 24 (12-78) U/L Alkaline Phosphatase 55 (45-117) U/L Total Protein 7.9 (6.4-8.2) g/dL Albumin 4.1 (3.4-5.0) g/dL Intake and Output 05/16/18 05/17/18 05/17/18 22:59 06:59 14:59 Intake Total 0 / 0 Balance 0 / 0 Intake: Oral 0 / 0 Other: # Voids 1 Weight 106.141 kg Weight On Admission 106.141 kg Assessment and Plan - Plan The exam, history, and the medical decision-making described in the above note were completed with the assistance of the mid-level provider. I reviewed and agree with the findings presented. I attest that I had a [id number] encounter with the patient on the same day, and personally performed and documented my assessment and findings in the medical record. Risks of cath reviewed will proceed with cath eusebio
[2018-05-17] MEDS: Insulin NovoLIN Regular Correctional Sugar Inj SQ SCH ×2 (12:36→16:58)
[2018-05-17] MEDS ORDERED: Heparin/NS PF Inj 1,000 ML ONE (12:55)
[2018-05-17] MEDS ORDERED: Heparin 10,000 UNITS/10 ML Vial (for IV use) ONE (12:56)
[2018-05-17] MEDS ORDERED: fentaNYL Citrate Inj 100 MCG/2 ML Ampul ONE (12:56)
--- NOTE | 2018-05-17 14:29 | CATHPROC ---
[employer] HIS Report Study Information Study Number Admission Scheduled Start Study Start [id number] May 16 2018 8:03PM 05/17/2018 May 17 2018 12:46PM [place] [facility] C[facility]ter[facility] Admit Source Facility Department Emergency department [facility] - Bullet Assembly Press Setter Operator Physician and Clinical Staff Initial Sonia Rollins Poacher Wringer Operator Hadley Paz RN Poacher Wringer Operator Hadley Duran RN Poacher Wringer Operator Araseli Marshall RN Recorder [place] RCIS TECH2 Scrub Mariano Montague RCIS(BS) Procedures Performed Procedure Location (Site) Vessel Name Coronary Angiograms LCA Left Coronary Coronary Angiograms RCA Right Coronary Wire insertion Fem Art (right) Femoral Art Wire insertion Radial (right) Radial Art. Equipment Time Cashiers Supervisor Description Size Mfg Part Number Used/Scraped CATHETER, FR5 SWAN PONCE 13:08 [employer] FR 5 [id number] *[id number] Used MONITOR TRANSDUCER, TRUWAVE [id number] 12:48 [employer] HAUSER * Used W/STOCKCOCK *[id number] TIG 4.0 GUIDE CATHETER [id number] 13:29 [employer] FR 6 Used CONVEY *[id number] WIRE, ZIP STRAIGHT GLIDE [id number] 13:56 [employer] 260 Used 260CM *[id number] [id number] *[id number] 534-548T *[id number] 12:48 [employer] BLANKET,WARM AIR CCL * Used *[id number] 12:48 [employer] PACK, CCL CUSTOM * Used *[id number] 12:48 [employer] SUPPORT, ARTERIAL ADULT [id number] *[id number] Used [id number] 12:48 [employer] PACER PEN, SKIN DUAL W/ RULER * Used *[id number] BAND, RADIAL COMPRESSION TR [id number] 14:01 [employer] MEDICAL 24CM Used SHORT 24 *[id number] 12:48 [employer] WIRE, EXCHANGE 260CM 3MMJ 260CM Used *[id number] 12:48 [employer] OMNIPAQUE, 350 MG, 150ML 150ML [id number] Used SHEATH, FR6 TRANSRADIAL [id number] 13:09 [employer] MEDICAL FR 6 Used SLENDER 10CM *[id number] SHEATH, FR6 TRANSRADIAL [id number] 13:09 [employer] MEDICAL FR 6 Used SLENDER 10CM *[id number] Equipment Model, Serial, Lot Number and Expiration Data Description Model Number Serial Number Lot Number Expiration Date TIG 4.0 GUIDE CATHETER CONVEY [id number] 05-27-2020 WIRE, ZIP DINA GLIAB 260CM [id number] 08-26-2020 History: Current Medications Medication Dosage/Unit Route Frequency Last Date/Time Taken ASA Glucophage Allopurinol LIPITOR History: Allergies Allergy Reaction No Known Allergies History: Risk Factors Family History of Hypertension Dyslipidemia Previous AK Previous Heart Failure Premature CAD Yes Yes Yes No No Prior Valve Prior PCI Prior CABG Surgery No No No Cerebrovascular Peripheral Artery Chronic Lung On Dialysis Diabetes Diabetes Therapy Disease Disease Disease No Yes No No Yes Oral History: Symptoms/Diagnosis Selection Items Chest pain SOB History: Stress Tests Stress or Imaging Studies Performed No History: Other Disease Selection Items Cancer History: Other Current Smoker Method Quit Packs a Day Years Used Pack Years No Cigarettes 32 Years Ago 3 20 60 Labs Hgb (g/dl) Hct (%) WBC (l/cumm) Platelets (thousands) 11.60-17.00 35.00-51.00 4.00-11.00 150.00-450.00 14.2 41.7 9.1 255 Glucose (mg/dl) BUN (mg/dl) Creatinine (mg/dl) BUN:Creatinine (1:x) 74.00-106.00 7.00-18.00 0.50-1.30 10.00-20.00 115 20 1.2 16.7 Na (meq/l) K (meq/l) 136.00-145.00 3.50-5.10 139 4.3 INR (PTT:PT) 0.90-1.10 1 Troponin I (ng/ml) CPK (u/l) CPK-MB (ng/ML) 0.02-0.05 26.00-308.00 0.50-3.60 0.02 176 3.7 Medication Medication Total Dose (Bolus/Oral) Medication Total Dosage/Unit 1% XYLOCAINE 5 mL FENTANYL 100 mcg RADIAL COCKTAIL 5 mL (Bolus) VERSED 3 mg Medications (Bolus/Oral) Medication Time Given Dosage/Unit Administered By Reason VERSED 05/17/2018 1:19:14 PM 1 mg Araseli Marshall 1 mg VERSED given in lab by Araseli Marshall, RN in Left Antecubital via Peripheral IV. Ordered by Sonia Gilmore. FENTANYL 05/17/2018 1:20:33 PM 50 mcg Adamy, Araseli 50 mcg FENTANYL given in lab by Araseli Marshall RN in Left Antecubital via Peripheral IV. Ordered by Sonia Pitts. VERSED 05/17/2018 1:22:15 PM 1 mg Adamy, Araseli 1 mg VERSED given in lab by Araseli Marshall, TRACEY in Left Antecubital via Peripheral IV. Ordered by Sonia Gilmore. 1% XYLOCAINE 05/17/2018 1:27:48 PM 5 mL Sonia Pitts 5 mL 1% XYLOCAINE given in lab by Sonia Pitts in Right Radial via Subcutaneous. Ordered by Sonia Murguia. Ntg 200mcg Verapamil 2.5mg Heparin RADIAL COCKTAIL 05/17/2018 1:29:39 PM 5 mL (Bolus) Sonia Pitts 2500U 5 mL (Bolus) RADIAL COCKTAIL given in lab by Sonia Pitts in Right Radial via Radial. Using [Solu tion Name]. Ordered by Sonia Pitts. Reason: Ntg 200mcg Verapamil 2.5mg Heparin 2500U. FENTANYL 05/17/2018 1:49:08 PM 50 mcg Valdoy, Araseli 50 mcg FENTANYL given in lab by Araseli Marshall RN in Left Antecubital via Peripheral IV. Ordered by Sonia Pitts. VERSED 05/17/2018 1:55:32 PM 1 mg Adamy, Araseli 1 mg VERSED given in lab by Araseli Marshall RN in Left Antecubital via Peripheral IV. Ordered by Sonia Gilmore. Medication (Drip) Medication Time Given Dosage/Unit Concentration/Unit Diluent (ml) Solution IV Solutions 05/17/2018 12:55:52 PM 0 mL (IV) 500 NaCl .9 Patient arrived on IV Solutions in Left Antecubital via Peripheral IV. Pump/Drip Flow = 20 ml/hr usin g NaCl .9. Initial Case Assessment Cardiovascular HR Rhythm NIBP Chest Pain 76 sr 188/81 2 Circulatory - Right Pulses Dorsalis Pedis Femoral Radial 2 2 2 Scale (0,1,2,3,4,d) Scale (0,1,2,3,4,d) Neurological State Oriented to time-place- Alert Moves all extremities person Respiration - General Respiration Rate SpO2 (%) (B/min) 12 99 Final Case Assessment Cardiovascular HR Rhythm NIBP Chest Pain 72 sr 152/64 0 Circulatory - Right Pulses Dorsalis Pedis Femoral Radial 2 2 2 Scale (0,1,2,3,4,d) Scale (0,1,2,3,4,d) Neurological State Oriented to time-place- Alert Moves all extremities person Respiration - General Respiration Rate SpO2 (%) (B/min) 15 97 Chronological Log Time Study Chronological Log 12:46:17 Patient arrived via Bed. 12:46:19 Patient Name, D.O.B, / Armband Verified By R.N. 12:51:34 Consent signed by the physician and the patient and verified by the Bullet Assembly Press Setter Operator staff. 12:51:35 Pre-op and post- op instructions given; patient acknowledges understanding of instructions. 12:51:36 Verbal Stimulation=2 Physical Stimulation=2 Airway=2 Respiration=2 TOTAL=8. (0=absent, 1=li mited, 2=present) 12:51:37 Presedation assessment performed by Bullet Assembly Press Setter Operator RN. 12:55:19 Patient has been NPO for Less than 6Hrs. 12:55:21 Patient has been NPO for More than 6Hrs. 12:55:24 Skin Breakdown-bandage noted on rt big toe. 12:55:49 Nani Prominences Protected 12:55:52 A # 18 IV was noted in the Antecubital (left). Grade = 0 12:55:52 Patient arrived on IV Solutions in Left Antecubital via Peripheral IV. Pump/Drip Flow = 20 ml/hr using NaCl .9. 12:55:53 A # 20 IV was noted in the Antecubital (right). Grade = 0 12:55:58 History and physical on the chart or being dictated. Vitals capture started with the following parameters, Patient=Adult, Interval=5 min, Initial Pr cfwckx=168 mmHg, 12:57:06 Deflation Rate=5 mmHg, Cuff placed on Left Leg 12:58:26 HR=78 bpm, TUFD=451/81 mmhg, SpO2=98.0 %, Resp=17 B/min 13:00:36 Positive Allens test performed on the right radial and ulnar artery. Assessment: Initial Case, HR=76 BPM, Rhythm=sr, ONIO=173/81 mmhg, Chest Pain=2 Right Pulses: [place] Ped=2, Femoral=2, Radial=2 13:00:59 Neurological: State=Alert, Ox3, [place] Respiration: Resp=12 B/min, SpO2=99 % 13:02:00 Right groin, right brachial and right wrist prepped with 2% chlorhexidine, and draped after a 3 min. waiting time. 13:03:02 HR=76 bpm, GIPG=499/77 mmhg, SpO2=99.0 %, Resp=18 B/min 13:07:55 HR=76 bpm, CEVP=407/73 mmhg, SpO2=99.0 %, Resp=12 B/min 13:10:15 Pressure channel 1 zeroed. 13:13:43 HR=77 bpm, EHDO=041/70 mmhg, SpO2=98.0 %, Resp=13 B/min 13:17:57 HR=74 bpm, ISMN=593/59 mmhg, SpO2=98.0 %, Resp=13 B/min 13:18:40 MD arrived. 13:19:14 1 mg VERSED given in lab by Araseli Marshall RN in Left Antecubital via Peripheral IV. Orde red by Sonia Pitts. 50 mcg FENTANYL given in lab by Araseli Marshall RN in Left Antecubital via Peripheral IV. Orde red by Hong 13:20:33 Sonia. 13:22:15 1 mg VERSED given in lab by Araseli Marshall RN in Left Antecubital via Peripheral IV. Orde red by Sonia Pitts. 13:22:58 HR=77 bpm, DVUY=709/58 mmhg, SpO2=94.0 %, Resp=14 B/min Time Out. Correct patient, correct procedure, correct physician, labs, allergies, and equipment verified with laborer bituminous paving 13:24:20 team present. Fire risk assesment completed (see hard stop sheet for coding). Time Out Conc urred by MD and individual staff in procedure. 13:24:54 Case Start A SHEATH, FR6 TRANSRADIAL SLENDER 10CM FR 6 was exchanged in the Brach. Vein (right). This was necessary in 13:25:13 order to accomodate a larger catheter. 20G Brachial vein venous access exchanged for 6FR slende r sheath 5 mL 1% XYLOCAINE given in lab by Sonia Pitts in Right Radial via Subcutaneous. Ordered by Hong, 13:27:48 [place]. 13:28:32 HR=71 bpm, SDXO=239/68 mmhg, SpO2=95 %, Resp=10 B/min 13:28:49 Access site was Right Radial Artery . A SHEATH, FR6 TRANSRADIAL SLENDER 10CM FR 6 was advanced into the Fem Art (right) using the Per cutaneous 13:29:00 technique. 5 mL (Bolus) RADIAL COCKTAIL given in lab by Sonia Pitts in Right Radial via Radial. Using [Solution Name]. 13:29:39 Ordered by Sonia Pitts. Reason: Ntg 200mcg Verapamil 2.5mg Heparin 2500U. 13:30:19 A CATHETER, FR5 SWAN PONCE MONITOR FR 5 was inserted via Brach. Vein (right) A SHEATH, FR6 TRANSRADIAL SLENDER 10CM FR 6 was advanced into the Radial (right) using the Perc utaneous 13:31:44 technique. Recorded Pressure: PCW, HR=77, Condition=Condition 1 13:31:49 (Pulmonary Capillary Wedge) PCW 13:32:27 Saturation: Site=Ao (Aorta) , O2=91.6 %, Hgb=14.2 gm/dl, Condition=Condition 1. Used in naomie culation. Recorded Pressure: MPA, HR=76, Condition=Condition 1 13:32:37 (Main Pulmonary Artery) MPA 13:32:54 HR=76 bpm, EXNH=032/65 mmhg, SpO2=89.0 %, Resp=18 B/min 13:33:10 Saturation: Site=PA (Pulmonary Artery) , O2=71.5 %, Hgb=14.2 gm/dl, Condition=Condition 1. Used in calculation. Recorded Pressure: RV, HR=76, Condition=Condition 1 13:33:57 (Right Ventricle) RV 397 Recorded Pressure: RA, HR=74, Condition=Condition 1 13:34:43 (Right Atrium) RA 13:35:10 Talmage Ponce Catheter Removed 13:36:16 Saturation: Site=RA (Right Atrium) , O2=72.1 %, Hgb=14.2 gm/dl, Condition=Condition 1. Used in calculation. A TIG 4.0 GUIDE CATHETER CONVEY FR 6 was advanced over a wire. OMNIPAQUE, 350 MG, 150ML 150ML w as used 13:36:47 for injections. Recorded Pressure: Ao, HR=75, Condition=Condition 1 13:37:40 (Aorta) Ao 143/67/99 13:37:53 HR=74 bpm, AGBG=557/66 mmhg, SpO2=94.0 %, Resp=13 B/min 13:38:32 The LCA was injected and visualized at various angles. OMNIPAQUE, 350 MG, 150ML 150ML used . 13:42:56 HR=74 bpm, VIVL=619/66 mmhg, SpO2=93.0 %, Resp=15 B/min 13:47:19 The RCA was injected and visualized at various angles. contrast used. 13:47:56 HR=75 bpm, MUID=764/68 mmhg, SpO2=95.0 %, Resp=13 B/min 13:48:43 A WIRE, EXCHANGE 260CM 3MMJ 260CM was inserted via Fem Art (right). 50 mcg FENTANYL given in lab by Araseli Marshall RN in Left Antecubital via Peripheral IV. Orde red by Hong, 13:49:08 Marianoun. 13:51:20 Catheter was removed, unable to cross valve A AL 1 INFINITI CATHETER FR 5 was advanced over a wire. OMNIPAQUE, 350 MG, 150ML 150ML was used for 13:51:53 injections. 13:52:57 HR=75 bpm, HQDI=516/70 mmhg, SpO2=92.0 %, Resp=14 B/min 13:54:14 Catheter was removed, unable to cross valve. A AR MOD INFINITI CATHETER FR 5 was advanced over a wire. OMNIPAQUE, 350 MG, 150ML 150ML was us ed for 13:54:33 injections. 13:54:45 Wire removed 13:55:32 1 mg VERSED given in lab by Araseli Marshall, TRACEY in Left Antecubital via Peripheral IV. Orde red by Sonia Pitts. 13:56:25 A WIRE, ZIP STRAIGHT GLIDE 260CM 260 was inserted via Radial (right). 13:58:41 HR=68 bpm, BCUU=564/67 mmhg, SpO2=91.0 % 13:58:58 Wire removed 13:59:14 Unable to cross, Catheter was removed 14:00:29 Case End (Physician broke scrub) 14:02:55 HR=69 bpm, ZPRE=890/64 mmhg, SpO2=97.0 %, Resp=12 B/min 14:03:57 Brachial Sheath removed; pressure applied to access site. Radial Compression Device Used. 12 mLs of air placed in BAND, RADIAL COMPRESSION TR SHORT 24 24 CM. Affected 14:03:58 hand 98 % O2 saturation. 14:04:21 No case complications noted. 14:04:22 Cine recording checked. 14:04:25 Bedside Report will be given. Assessment: Final Case, HR=72 BPM, Rhythm=sr, EMCT=555/64 mmhg, Chest Pain=0 Right Pulses: [place] Ped=2, Femoral=2, Radial=2 14:04:26 Neurological: State=Alert, Ox3, [place] Respiration: Resp=15 B/min, SpO2=97 % 14:07:58 HR=67 bpm, SGWT=852/67 mmhg, SpO2=97.0 %, Resp=12 B/min 14:11:04 Hemostasis obtained. 14:11:31 Sterile dressing applied to site 14:13:01 OPJK=167/63 mmhg 14:15:47 Patient moved to stretcher 14:15:50 Patient transported to DOCU. 14:16:08 Vitals capture stopped. End Study - Contrast Media Used In Study Contrast Total Opened (mL) Total Used (mL) Total Wasted (mL) Omnipaque 75 75 0 End Study - Maximum Contrast Load Max Contrast Load (mL) 443.2 End Study - Radiation Exposure Fluoro Time (minutes) 14.3 End Study - Sheaths Sheaths Pulled By Sheath Hold Time (min) Mariano Montague End Study - Patient Disposition Complications Transferred To Interventional Outcome No Telemetry Bed No attempt made
--- NOTE | 2018-05-17 15:02 | MP ---
cc: Sonia Pitts MD, David W MD Khanna,Sam CHO DATE OF OPERATION: 05/17/2018 PROCEDURE: Right and left heart catheterization. INDICATIONS FOR PROCEDURE: Increasing shortness of breath, aortic valve stenosis. CONSENT: Fully informed consent was obtained prior to the procedure. Risks of heart catheterization of , bleeding, myocardial infarction, perforation, aspiration, foreseen and unforeseen complications were reviewed. The patient appeared to understand the risks. PROCEDURE IN DETAIL: The patient was draped and prepped in usual manner. The patient was given sedation with Versed and fentanyl. The patient had his right radial artery and right brachiocephalic vein intubated. Two slender sheaths were placed in the brachial vein and radial artery respectively. Via the brachial vein, a right heart catheterization was carried out. After this, a TIG catheter was used to intubate the left and right coronaries. Several catheters were used to try and intubate the aortic valve, but this was not possible as the aortic valve was very tight. This was attempted with an AL1 catheter, an AR modified catheter, and a TIG catheter. At the end of the procedure, all catheters were removed. The TR band was placed on the arterial sheath and manual pressure was applied on the brachial venous area, and patient was returned to his room in stable condition. FINDINGS: HEMODYNAMICS/SATURATIONS: Aortic pressure was 151/66. The left ventricle was not entered. The aortic saturation was 91.6. Pulmonary artery saturation 71.5. The right atrial saturation was 72.1. The cardiac output was 7.3 liters per minute by Kusum. Thermodilution cardiac outputs not done. The pulmonary capillary wedge pressure was 13/11 with a mean of 9. The aortic pressure was 36/7 with a mean of 19, RV pressure was 39. Right atrial pressure was 11/5; mean of 4. Aortic pressure was 142/67 with a mean of 99. CORONARY ARTERIES: The left main was a large vessel free of significant disease. The left anterior descending artery was a large vessel with a large first diagonal branch. At the ostium of the large first diagonal branch, which was free of significant disease. There was evidence of a large diagonal branch. There was another small vessel over the diagonal branch, but the diagonal branch itself appeared to be free of significant disease. The circumflex artery was a large, dominant vessel with a large first obtuse marginal branch and a large second obtuse marginal branch, which were free of significant disease. 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 The posterior descending artery was large. The posterolateral branch was small. CONCLUSION: Codominant system. 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 PLAN: We will plan to recheck echo with the aortic valve and then reconsider aortic valve replacement as an outpatient. Note: gradient in recovery with echo doppler was 83mm across AV, proceed with AVR Discussed with Dr Alanis and Dr Hamilton. MD KATHARINA Woods/keshia , 02:10 PM , 02:19 PM GRACIELA
--- NOTE | 2018-05-17 16:06 | P.PNCV ---
- Note Subjective/Hospital Course: pt seen and evaluated / full consult to follow sts data discussed with pt RISK SCORES About the STS Risk Calculator Procedure: AV Replacement Risk of Mortality: 2.682% Morbidity or Mortality: 19.524% Long Length of Stay: 7.532% Short Length of Stay: 29.049% Permanent Stroke: 1.619% Prolonged Ventilation: 12.211% DSW Infection: 0.465% Renal Failure: 8.012% Reoperation: 7.442% Objective: Vital Signs - 24 hr 05/16/18 17:30 05/16/18 17:32 05/16/18 18:02 Temperature 98.5 F Pulse Rate 78 77 Respiratory Rate 13 18 Blood Pressure 161/67 H 144/82 H Pulse Oximetry 97 96 96 05/16/18 18:11 05/16/18 19:30 05/17/18 00:00 Temperature 97.6 F Pulse Rate 76 74 71 Respiratory Rate 18 18 18 Blood Pressure 144/82 H 161/72 H 175/73 H Pulse Oximetry 96 97 95 05/17/18 04:00 05/17/18 08:00 05/17/18 08:15 Temperature 98.2 F 98.0 F Pulse Rate 63 76 76 Respiratory Rate 16 16 Blood Pressure 137/63 142/66 H Pulse Oximetry 98 98 05/17/18 12:00 05/17/18 14:21 Temperature 97.6 F Pulse Rate 76 Respiratory Rate 16 Blood Pressure 151/69 H Pulse Oximetry 97 100 Labs: Laboratory Results - last 12 hr 05/17/18 05/17/18 05/17/18 04:26 04:30 11:51 POC Glucose 139 H 141 H Total Creatine Kinase 176 Troponin I 0.02 Result Diagrams: 05/16/18 18:00 05/16/18 18:00
--- NOTE | 2018-05-17 16:34 | ECHRPT ---
Indication: CONCLUSIONS Limited echo to evaluate aortic stenosis The aortic valve is not well visualized. Diffuse calcification of the aortic valve. Severe aortic valve stenosis (max velocity 4.6, peak grad 85, mean grad 51) . BP: / HR: Rhythm: Sinus MEASUREMENTS (Male / Female) Normal Values Technical Quality:Technically difficult study 2D ECHO LVOT Diameter 2.1 cm Aortic Root Diameter 3.2 cm DOPPLER AV Peak Velocity 465.0 cm/s AV Peak Gradient 86.5 mmHg AV Mean Gradient 53.0 mmHg AV Velocity Time Integral 119.0 cm FINDINGS AORTIC VALVE The aortic valve is not well visualized. Diffuse calcification of the aortic valve. Severe aortic valve stenosis (max velocity 4.6, peak grad 85, mean grad 51) Ac Mckay DO (Electronically Signed) Final Date:17 May 2018 16:32
[2018-05-17 16:55] LABS: Bilirubin,Urine Negative (Negative); Clarity,Urine Clear (Clear); Color,Urine Yellow (Yellw/Straw); Glucose,Urine (UA) Negative (Negative); Leukocyte Esterase,Urine Negative (Negative); Nitrite,Urine Negative (Negative); Specific Gravity,Urine 1.047 (1.002-1.035)
--- NOTE | 2018-05-17 17:18 | MB ---
cc: Destiny Hunt DATE: 05/17/2018 HISTORY OF PRESENT ILLNESS: A 77-year-old male patient of Dr. Pitts and Dr. Dontrell Zaldivar, presented to the emergency department on 05/16/2018. Apparently, developed some chest tightness while working outside, unresolved with rest, instructed to go to the emergency department. Upon exam by the ER physician, also reported that a mild chest tightness, occasional lightheadedness. He has been worked up in the past with known aortic stenosis. His prior echocardiogram from Dr. Pitts's office showed ejection fraction 54%, left ventricular hypertrophy, left atrial enlargement, moderate to severe aortic stenosis with an aortic valve area 0.8 cm2, peak gradient of 58, mild mitral regurgitation, and mild tricuspid regurgitation. We were consulted to evaluate for aortic valve replacement. PAST MEDICAL HISTORY: Includes aortic stenosis, diabetes mellitus type 2, gout, hyperlipidemia, hypertension, skin cancer, TIA, chronic back problems, insomnia, history of prostate cancer in 2006 with radiation. 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 PAST SURGICAL HISTORY: He had a tonsillectomy. ALLERGIES: HE HAS NO KNOWN ALLERGIES. HOME MEDICATIONS: Include: 1. Allopurinol. 2. Vitamin C. 3. Aspirin. 4. Co Q-10. 5. Magnesium. 6. Zinc. 7. Metformin. 8. Atorvastatin. 9. Losartan. FAMILY HISTORY: A brother had apparently after aortic valve surgery. SOCIAL HISTORY: The patient is , no children. Smoked for 20 years, quit in 1985; 1-2 beers per evening. REVIEW OF SYSTEMS: GENERAL: No night sweats, fever, or heat and cold intolerance. SKIN: No psoriasis, itching, or hives. HEENT: No blurred vision. He does have hearing aids, but he chooses not to use them. RESPIRATORY: Positive for recent shortness of breath. CARDIOVASCULAR: As above in the HPI. GASTROINTESTINAL: No diarrhea or vomiting. GENITOURINARY: No burning, frequency, or urgency. CENTRAL NERVOUS SYSTEM: History of TIA, no CVA. ENDOCRINOLOGY: Positive for diabetes. PHYSICAL EXAMINATION: VITAL SIGNS: Blood pressure 150/70, heart rate is 76, afebrile. O2 saturation 100 on room air. GENERAL: The patient is awake, alert, in no acute distress. HEENT: Head is normocephalic, atraumatic. Pupils equal and reactive. Oral mucosa pink, moist. NECK: Supple. No JVD. HEART: Sounds S1, S2. Regular rate and rhythm. He has got a grade 3/6 systolic murmur best heard in the left sternal border. LUNGS: Clear to auscultation. No wheezes, rales, or rhonchi. ABDOMEN: Soft, nontender. No masses or organomegaly. EXTREMITIES: No cyanosis, clubbing, or edema. SKIN: He has got some chronic, what appears to be, some venous stasis right lower extremity. Pulses: He has got 2+ on the left and right and 1+ on the right. LABORATORY DATA: Shows hemoglobin 14, hematocrit of 42, white cell count of 9.1, platelet count 255,000. Sodium 139, potassium 4.3, BUN of 20, creatinine 1.20. Troponin negative x2. AST 18, ALT 24. INR 1.0. Urinalysis is pending. ASSESSMENT AND PLAN: Again, this is a 77-year-old male with known aortic valve stenosis, valve area 0.8. Repeat echo has been done, which the results are pending. In the meantime procedures, alternatives, and risks have been discussed with the patient and his . The patient is agreeable to proceed with a minimally invasive sternotomy approach. An aortic valve replacement, preferring a tissue valve. At this time, we will plan for 05/26/2018. DANIA White , 04:17 PM , 04:27 PM
--- NOTE | 2018-05-17 19:49 | US ---
EXAM DATE: 05/17/2018 7:06 PM EDT AGE/SEX: 77 years / Male INDICATIONS: Aortic valve repair. CLINICAL DATA: This is the patient's initial encounter. Patient reports that signs and symptoms have been present for 1 day and indicates a pain score of 0/10. MEDICAL/SURGICAL HISTORY: Hypercholesterolemia. Hypertension. Aortic stenosis. Diabetes. GOUT. Skin cancer. Tonsillectomy. COMPARISON: No prior exams available for comparison. VELOCITY PARAMETERS: ICA/CCA Ratio: Right 1.6 , Left 0.9 ICA: Right 76 cm/sec, Left 89 cm/sec CCA: Right 48 cm/sec, Left 96 cm/sec ECA: Right 79 cm/sec, Left 89 cm/sec Vertebral: Right 38 cm/sec antegrade, Left 43 cm/sec antegrade FINDINGS: Right Carotid: No significant plaque is visualized.The waveforms are within normal limits. Left Carotid: Mild amount of nonshadowing plaque seen in the region of the carotid bulb. The wavefor ms are within normal limits. Other: None. CONCLUSION: 1. Right Internal Carotid Artery: Findings indicate <50% stenosis. 2. Left Internal Carotid Artery: Findings indicate <50% stenosis. Electronically signed by: Jameson Haq MD 05/17/2018 7:48 PM EDT
[2018-05-17 23:39] LABS: Albumin 2.4 g/dL (3.4-5.0); Total Protein 4.7 g/dL (6.4-8.2)
== END 2018-05-17 18:45 | disposition home or self-care (01) ==
LOC: NEDA 17:15 → NEPE 17:15 → HCIS 17:15 → NEPHCDU 21:06 → HCIS 05-17 12:54
PROVIDERS: ADMIT Family Medicine; ATTEND Family Medicine
DX: E66.3 Overweight; Z85.46 Personal history of malignant neoplasm of prostate; Z85.828 Personal history of other malignant neoplasm of skin; Z86.73 Personal history of transient ischemic attack (TIA), and cerebral infarction without residual deficits; R07.89 Other chest pain; R06.02 Shortness of breath; Z87.891 Personal history of nicotine dependence; I10 Essential (primary) hypertension; R09.89 Other specified symptoms and signs involving the circulatory and respiratory systems; E78.5 Hyperlipidemia, unspecified; I08.3 Combined rheumatic disorders of mitral, aortic and tricuspid valves; Z95.2 Presence of prosthetic heart valve; E11.9 Type 2 diabetes mellitus without complications; E78.00 Pure hypercholesterolemia, unspecified; I25.10 Atherosclerotic heart disease of native coronary artery without angina pectoris

== ENCOUNTER 2018-05-26 05:27 | Inpatient (IN) ==
[~2018-05-26 05:27] MED LIST: Metoprolol Tartrate 25 MG Tablet PO SCH
[2018-05-26] MEDS ORDERED: Insulin Regular (For Infusion) 100 UNIT in Sodium Chlor 0.9% Inj 99 ML IV.CONT PRN (05:48)
[2018-05-26] MEDS ORDERED: Dextrose 50% in Water 50 ML Vial IV.PUSH PRN ×2 (05:48→11:35)
[2018-05-26] MEDS ORDERED: Chlorhexidine Gluconate 2% 1 Pack (2 Cloths) TOPICAL SCH (06:00)
[2018-05-26] MEDS ORDERED: ceFAZolin 2 GM Premix Inj 2 GM/100 ML BAG IV.SIG SCH (06:00)
[2018-05-26] MEDS ORDERED: Chlorhexidine 4% Topical 120 APPLIC/120 ML Bottle TOPICAL SCH (06:00)
[2018-05-26] MEDS ORDERED: Sodium Chloride 0.9% Irr Bot 500 ML, ceFAZolin Inj 500 MG IRRIGATION SCH ×2 (06:00)
[2018-05-26] MEDS ORDERED: Sodium Chlor 0.9% Inj 500 ML IV.SIG SCH (06:00)
[2018-05-26] MEDS ORDERED: Heparin - SQ 10,000 UNITS/ML Vial ONE ×2 (06:27)
[2018-05-26] MEDS: Metoprolol Tartrate 25 MG Tablet PO SCH (06:30)
[2018-05-26] MEDS ORDERED: Midazolam Inj 5 MG/ML 1 ML Vial ONE (07:10)
[2018-05-26] MEDS ORDERED: fentaNYL Citrate Inj 250 MCG/5 ML Ampul ONE (07:10)
[2018-05-26] MEDS ORDERED: CUST1000P IRRIGATION ONE (07:34)
[2018-05-26] MEDS ORDERED: Potassium Chloride Inj 40 MEQ/20 ML Vial ONE (07:35)
[2018-05-26] MEDS ORDERED: Albumin Human 25% Inj 50 ML IV.SIG ONE (07:36)
[2018-05-26] MEDS ORDERED: Sodium Bicarbonate 8.4% Inj 50 MEQ/50 ML Syringe ONE (07:36)
[2018-05-26] MEDS ORDERED: Heparin 10,000 UNITS/10 ML Vial (for IV use) ONE (07:37)
[2018-05-26] MEDS ORDERED: Post-op Orders (for Pharmacy) OTHER STA (11:35)
[2018-05-26] MEDS ORDERED: Metoprolol Inj 5 MG/5 ML Vial IV.PUSH PRN (11:35)
[2018-05-26] MEDS ORDERED: Potassium Chlor 20 mEq Premix 20 MEQ/100 ML PIGGYBACK IV.SIG PRN ×2 (11:35)
[2018-05-26] MEDS ORDERED: Magnesium Sulfate Inj 2 GM in Sodium Chlor 0.9% Inj 96 ML IV.SIG PRN ×4 (11:35)
[2018-05-26] MEDS ORDERED: Calcium Chloride Inj 1 GM/10 ML Syringe IV.PUSH PRN (11:35)
[2018-05-26] MEDS ORDERED: Dexmedetomidine Inj 200 MCG in Sodium Chlor 0.9% Inj 48 ML IV.CONT PRN (11:35)
[2018-05-26] MEDS ORDERED: Acetaminophen 650 MG Supp RECTAL PRN (11:35)
[2018-05-26] MEDS ORDERED: RESP: Racemic Epinephrine 2.25% 0.5 ML Neb NEB PRN (11:35)
[2018-05-26] MEDS ORDERED: Albumin Human 5% Inj 250 ML IV.SIG PRN (11:35)
[2018-05-26] MEDS ORDERED: Morphine Sulfate Inj 2 MG/ML Vial IV.PUSH PRN (11:35)
--- NOTE | 2018-05-26 11:44 | P.OP ---
Date of procedure: 05/26/18 Anesthesia: DEANDREA Surgeon: Sam Hamiltno MD Operation and Findings: PREOPERATIVE DIAGNOSES 1. Severe Aortic Stenosis. 2. Moderate Aortic Insufficiency 3. Diabetes mellitus POSTOPERATIVE DIAGNOSES Same SURGICAL PROCEDURE Aortic Valve Replacement with a 25 mm Medtronic Mosaic Cinch Tissue valve. GOVERNMENT AFFAIRS FELLOW BENJAMÍN Singh ANESTHESIA General endotracheal. BANK ACCOUNTANT Cody Patel CRNA, Andres Gallego MD PREPARATION ChloraPrep. NEEDLE, SPONGE AND INSTRUMENT COUNT Correct. DRAINS One 32-Estonian mediastinal tubes. COMPLICATIONS None. INDICATIONS The patient is a 7-year-old gentleman with severe aortic stenosis, presenting for surgical correction of the above pathology. DESCRIPTION OF PROCEDURE The patient was brought to the operating room and placed supine on the OR table. Following the induction of adequate general endotracheal anesthesia and placement of appropriate monitoring devices, the patient was then prepped and draped in the standard sterile fashion. Intraoperative BAY revealed severe and calcific aortic stenosis with moderate to severe aortic insufficiency. Therefore plans were made to proceed with a full sternotomy and not a minimally invasive approach. Median sternotomy was performed, the pericardium was divided in the midline and the cradle created. The patient was systemically heparinized and anticoagulation monitored by serial ACT measurements. Then 2 pursestring sutures of 2-0 Ethibond were placed on the aorta proximal to the takeoff of the innominate artery, another was placed in the right atrial appendage. At this point, aortic and 2-stage venous cannulae were introduced and attached to the arterial and venous components of the bypass circuit respectively. Antegrade cardioplegia cannula and a left ventricular vent, through the right superior pulmonary vein, were also placed. The patient was placed on cardiopulmonary bypass and core cooling initiated to a temperature of 32 degrees centigrade. The crossclamp was applied and 1 l of cardioplegia solution (Assisted HTK) given in an antegrade fashion in addition to topical cooling with slushed saline. Upon achieving adequate diastolic arrest of the heart a transverse aortotomy was performed. Additional cardioplegia was then given directly into the coronary ostia. This included just 650 mL's to the left main and 350 to the right coronary. The aortic valve was then excised. The valve was very heavily calcified with the calcific process extending onto the anterior leaflet of the Mitral valve. Complete circumferential decalcification was performed and care was taken to aspirate and remove all particulate matter. Horizontal mattress sutures of interrupted 2-0 Ethibond were placed on the aortic annulus with pledgets on the ventricular side. After adequate sizing, a 25 mm Medtronic Mosaic tissue valve was brought in the surgical field and the sutures passed through the skirt. The valve was seated using Cor-knots. This appeared to be a good fit. Gradual rewarming was initiated and the aortotomy closed in 2 layers. This was with 4-0 Prolene; the 1st layer being horizontal mattress, the 2nd layer being running baseball stitch. The cross clamp was removed and upon achieving normothermic cardiac activity, transesophageal echocardiography revealed a well-situated aortic prosthesis with no evidence of perivalvular leak and no aortic stenosis or aortic regurgitation. Protamine was administered. Decannulation was performed and all sites were inspected for hemostasis. At this point the closure was undertaken. The pericardium was reapproximated in the midline. Two ventricular pacing wires and 2 chest tubes placed, and the sternum was reapproximated using stainless steel sternal wires. The musculo-fascial layer was then closed in 3 layers. The patient tolerated the procedure well and was transferred to open heart recovery in stable condition.
[2018-05-26] MEDS: Calcium Chloride Inj 1 GM in Sodium Chlor 0.9% Inj 100 ML IV.SIG PRN ×2 (12:40→20:52)
[2018-05-26] MEDS: Potassium Chlor 20 mEq Premix 20 MEQ/100 ML PIGGYBACK IV.SIG PRN ×2 (12:40→17:35)
--- NOTE | 2018-05-26 13:12 | XR ---
EXAM DATE: 05/26/2018 12:37 PM EDT AGE/SEX: 77 years / Male INDICATIONS: Post aortic valve replacement CLINICAL DATA: This is the patient's initial encounter. Patient reports that signs and symptoms have been present for 1 day and indicates a pain score of Nonresponsive. MEDICAL/SURGICAL HISTORY: Hypertension. Diabetes mellitus type II. . aortic valve [place] [facility] [place]. . FINDINGS: Status post cardiothoracic surgery. The endotracheal tube, NG tube and right chest tube appear to be in place. There is a left-sided central line in place. No evidence of pneumothorax. There is some ate lectasis in both lung bases. The heart size is within normal limits. No significant pleural effusions . CONCLUSION: Satisfactory postoperative view of the chest with some bibasilar atelectasis. Electronically signed by: Jones Hernandez MD 05/26/2018 1:11 PM EDT
[2018-05-26] MEDS: Clevidipine Inj 25 MG/50 ML VIAL IV.CONT PRN ×3 (13:35→22:13)
--- NOTE | 2018-05-26 13:58 | P.PNCV ---
- Note Subjective/Hospital Course: 77-year-old male patient of Dr. Pitts and Dr. Barfield, intially seen , had presented to the emergency department on 05/16/2018. Apparently, developed some chest tightness while working outside, unresolved with rest, instructed to go to the emergency department. Upon exam by the ER physician, also reported that a mild chest tightness, occasional lightheadedness. He has been worked up in the past with known aortic stenosis. His prior echocardiogram from Dr. Pitts's office showed ejection fraction 54%, left ventricular hypertrophy, left atrial enlargement, moderate to severe aortic stenosis with an aortic valve area 0.8 cm2, peak gradient of 58, mild mitral regurgitation, and mild tricuspid regurgitation. We were consulted to evaluate for aortic valve replacement. PAST MEDICAL HISTORY: Includes aortic stenosis, diabetes mellitus type 2, gout, hyperlipidemia, hypertension, skin cancer, TIA, chronic back problems, insomnia, history of prostate cancer in 2006 with radiation. 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 05/26 pt electively admitted for surgery Aortic Valve Replacement with a 25 mm Medtronic Mosaic Cinch Tissue valve. Objective: Vital Signs - 24 hr 05/26/18 06:45 05/26/18 12:08 05/26/18 12:10 Temperature 97.5 F L 97.4 F L Pulse Rate 76 65 Respiratory Rate 20 12 12 Blood Pressure 163/80 H 116/50 L Pulse Oximetry 96 97 98 Labs: Laboratory Results - last 12 hr 05/26/18 05/26/18 06:39 13:28 POC Glucose 81 Blood Type A Positive Antibody Screen Negative MTS Gel Crossmatch See Detail Result Diagrams: 05/27/18 04:30 05/27/18 04:30
--- NOTE | 2018-05-26 14:02 | P.DCO ---
- Home Health Aide Instructions: Heart and Vascular Surgery patients *Special attention to sternal dressing Mandatory frequency Assess and evaluation, 4 days in a row The next week 3X week 2 times a week for 4 weeks 1 time a week for 5 weeks Schedule Heart and Vascular patients for full 60 day certification period Initial visit Review Open Heart Surgery Discharge Instructions (Sternal precautions, Activity, Elastic hose, Incision care, Driving, Incentive spirometry, Smoking, [place], Work and other) Need Betadine to paint incision Medication reconciliation Importance of follow up care/ check on appointments Make calendar record temperature daily When to call [facility] nurse, review instructions, phone list Incentive Spirometry, demonstration Visit 1- Begin discharge instruction for patient family and/ or caregiver using teach back method- Signs and symptoms of infection Disease characteristics Medicines and side effects Foods and nutrition/ appetite Infection control/ hand washing/ hygiene Visit 2- Continue teaching Discharge instructions- include additional information on smoking cessation , sternal dressing (sternal vac) Visit 3- Continue teaching- Cough and deep breathing, incision monitoring. Choose my plate Visit 4- Continue teaching- Discuss limitations Discuss how they are feeling Discuss progress toward goals Remaining visits- continue teaching and monitoring For any questions please call : Wednesday 8am-5pm Heart & Vascular Surgery Office ( Dr. Hamilton & Dr. Chew), After Hours / Nights (5pm -8am) Weekends and Holidays Please call [facility] Cardiac [facility] Unit (CIC) Charge Nurse PREVENA Single Use Negative Wound Therapy System Caregiver Instruction Sheet 1. A Prevena dressing system was applied to the chest incision during surgery , to promote wound healing. It works via a suction device (negative pressure wound therapy) to remove low to moderate levels of exudate (drainage) and infectious materials. We recommend that the device stay in place for up to seven days, from day of surgery. 2. Day of Surgery___05/26/18 Day of Removal __06/02/18 3. The dressing should only be removed by a health professional healthcare representative. Please arrange removal of device to coincide with Home Health visit and or with Nursing staff at Rehab 4. If skin reddening or irritation of skin occurs, or excessive drainage, please notify the Cardiovascular Surgeons office at [phone]. 5. Light showering is permissible; however the pump should be disconnected and placed in safe location, where it will not get wet. The dressing should not be exposed to direct spray or submerged in water. No bath tub / shower only. Ensure the end of the tubing attached to the dressing is facing down so that water does not enter the top of the tube. 6. To remove Prevena dressing: press purple button to turn off device / remove the suction. Then disconnect the tubing from the pump. The fixation strips should be stretched away from the skin and the dressing lifted at one corner and peeled back until it has been fully removed. 7. After removal, it is ok to shower daily using liquid dial soap and clean wash cloth, rinse and pat dry, and leave incision open to air dry. For any concerns regarding Prevena dressing, and or wounds, please contact Kim Hunter, patient navigator at [phone] or notify the Cardiovascular Surgeons office at [phone]. Incentive spirometry Q1 hr x 10, while awake, also use acapella device hourly whole awake Sternal Breast Bone Precautions: NO pushing or pulling, ( pt must use sternal pillow to support chest with all activities and with coughing ( takes up to 3 months breast bone to heal ) Daily incision care: ok to shower daily, no tub bath. Wash all incisions with liquid dial soap, clean wash cloth to each site, rinse and pat dry. Observe for any signs of infection, such as drainage which is dark yellow, agudelo, green or foul smelling. Immediately report to the surgeon any drainage from the chest incision, or legs, and for any abnormal drainage from the chest tube sites. Notify surgeon if any temp >101.5 degrees F. When specialty dressing removed/ or if you do not have one, continue to shower daily as above, then rinse and pat incision dry and paint with betadine daily x 5 days. Allow steri strips to fall off if you have any. Avoid lotions, creams, salves, oils, etc. for the first month Please see attached forms for additional instructions regarding post Open Heart specialty wound vacuum dressings. BHARATH or Prevena , Dressing to be removed by Nursing staff on __06/02/18 F/U appointment: as per DC instructions: PCP in 2 weeks, CV surgeon 2 weeks, Boom Conveyor Operator 3-4 weeks For any questions regarding incisions/ dressing / meds / post op care or above Symptoms, Wednesday 8am-5pm Heart & Vascular Surgery Office ( Dr. Hamilton & Dr. Chew), After Hours / Nights (5pm -8am) Weekends and Holidays Please call [facility] Card[facility] Unit (CIC) Charge Nurse - Certification I have seen patient Wm Rider on 05/26/18. My clinical findings support the need for the requested home health care services because: Deconditioned with increased weakness I certify that my clinical findings support that this patient is homebound because: Post-op weakness
[2018-05-26] MEDS: Ketorolac Inj 30 MG/ML (IVP) Vial IV.PUSH PRN (14:50)
[2018-05-26] MEDS ORDERED: Propofol 1000 mg/100 ml Inj 1,000 MG/100 ML BOTTLE IV.CONT PRN (15:54)
[2018-05-26] MEDS: Insulin Regular (For Infusion) 100 UNIT in Sodium Chlor 0.9% Inj 99 ML IV.CONT PRN (16:00)
[2018-05-26] MEDS: ceFAZolin Inj 2,000 MG in Sodium Chlor 0.9% Inj 80 ML IV.SIG SCH (16:25)
[2018-05-26] MEDS: Allopurinol 100 MG Tablet PO SCH (20:50)
[2018-05-26] MEDS: Amiodarone 200 MG Tablet PO SCH (20:50)
[2018-05-27] MEDS: ceFAZolin Inj 2,000 MG in Sodium Chlor 0.9% Inj 80 ML IV.SIG SCH ×3 (00:03→15:09)
[2018-05-27] MEDS: fentaNYL Citrate Inj 100 MCG/2 ML Ampul IV.PUSH PRN ×2 (02:09→03:38)
[2018-05-27] MEDS: Clevidipine Inj 25 MG/50 ML VIAL IV.CONT PRN ×2 (02:10→05:55)
[2018-05-27] MEDS: Ketorolac Inj 30 MG/ML (IVP) Vial IV.PUSH PRN ×2 (03:34→22:23)
[2018-05-27] MEDS: Potassium Chlor 20 mEq Premix 20 MEQ/100 ML PIGGYBACK IV.SIG PRN (03:35)
[2018-05-27 05:03] LABS: Hematocrit 36.8 % (39.0-51.0); Hemoglobin 12.5 gm/dL (13.0-17.0); Mean Corpuscular Hemoglobin 31.8 pg (27.0-34.0); Mean Corpuscular Volume 93.5 fL (80.0-100.0); Mean Platelet Volume 7.5 fL (7.0-11.0); Platelet Count 174 th/mm3 (150-450); Red Blood Count 3.93 mil/mm3 (4.50-5.90); Red Cell Distribution Width 14.3 % (11.6-17.2); White Blood Count 14.9 th/mm3 (4.0-11.0)
[2018-05-27 05:24] LABS: Calcium 8.6 mg/dL (8.5-10.1); Carbon Dioxide 25.7 meq/L (21.0-32.0); Magnesium 2.2 mg/dL (1.5-2.5); Potassium 4.4 meq/L (3.5-5.1)
--- NOTE | 2018-05-27 05:53 | XR ---
EXAM DATE: 05/27/2018 5:44 AM EDT AGE/SEX: 77 years / Male INDICATIONS: Post CABG. CLINICAL DATA: This is the patient's subsequent encounter. Patient reports that signs and symptoms h ave been present for 1 day and indicates a pain score of 4/10. MEDICAL/SURGICAL HISTORY: . Hypertension. Diabetes mellitus type II. . aortic valve replacemen t COMPARISON: [facility], CHEST 1V SINGLE AP, 05/26/2018. . FINDINGS: A single AP view of the chest demonstrates interval extubation. Nasogastric tube has been removed. Ri ght thoracostomy tube remains. Bibasilar atelectasis. More pronounced on the left. No infiltrates or effusions. Heart is normal in size. Median sternotomy wires. No pneumothorax. Left subclavian central line. Are intact. CONCLUSION: Low lung volumes with mild bibasilar atelectasis. Electronically signed by: Jameson Frederick MD 05/27/2018 5:52 AM EDT
[2018-05-27] MEDS: Insulin Regular (For Infusion) 100 UNIT in Sodium Chlor 0.9% Inj 99 ML IV.CONT PRN (06:33)
--- NOTE | 2018-05-27 08:57 | P.PNCV ---
- Note Subjective/Hospital Course: 77-year-old male patient of Dr. Pitts and Dr. Barfield, intially seen , had presented to the emergency department on 05/16/2018. Apparently, developed some chest tightness while working outside, unresolved with rest, instructed to go to the emergency department. Upon exam by the ER physician, also reported that a mild chest tightness, occasional lightheadedness. He has been worked up in the past with known aortic stenosis. His prior echocardiogram from Dr. Pitts's office showed ejection fraction 54%, left ventricular hypertrophy, left atrial enlargement, moderate to severe aortic stenosis with an aortic valve area 0.8 cm2, peak gradient of 58, mild mitral regurgitation, and mild tricuspid regurgitation. We were consulted to evaluate for aortic valve replacement. PAST MEDICAL HISTORY: Includes aortic stenosis, diabetes mellitus type 2, gout, hyperlipidemia, hypertension, skin cancer, TIA, chronic back problems, insomnia, history of prostate cancer in 2006 with radiation. 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 05/26 pt electively admitted for surgery Aortic Valve Replacement with a 25 mm Medtronic Mosaic Cinch Tissue valve. extubated after surgery crystalloid 2500cc, cell saver 740cc, EBL 1500cc 05/27 c/o of tingling both hands R>L + radial pulses slight improvement weaning off cleviprex restart home meds Objective: Vital Signs - 24 hr 05/26/18 12:08 05/26/18 12:10 05/26/18 14:10 Temperature 97.4 F L Pulse Rate 65 Respiratory Rate 12 12 Blood Pressure 116/50 L Pulse Oximetry 97 98 98 05/26/18 15:00 05/26/18 16:30 05/26/18 16:45 Temperature 98.7 F Pulse Rate 71 79 Respiratory Rate 18 20 Blood Pressure 141/54 H Pulse Oximetry 95 97 05/26/18 19:00 05/26/18 21:35 05/26/18 23:00 Temperature 97.4 F L 98.2 F Pulse Rate 81 75 75 Respiratory Rate 18 20 16 Blood Pressure 139/45 L 148/44 H Pulse Oximetry 97 97 05/27/18 03:00 05/27/18 03:29 05/27/18 07:00 Temperature 98 F 99.2 F Pulse Rate 78 87 81 Respiratory Rate 14 12 20 Blood Pressure 137/44 L 146/48 H Pulse Oximetry 97 97 GENERAL: A&O x 3 SKIN: Warm and dry. Prevena dressing to chest HEAD: Normocephalic. EYES: No scleral icterus. No injection or drainage. NECK: Supple, trachea midline. No JVD or lymphadenopathy. CARDIOVASCULAR: Regular rate and rhythm without murmurs, gallops, or rubs. RESPIRATORY: Breath sounds equal bilaterally. No accessory muscle use. chest tube to wall suction , no air leak GASTROINTESTINAL: Abdomen soft, non-tender, nondistended. MUSCULOSKELETAL: No cyanosis, or edema. BACK: Nontender without obvious deformity. No CVA tenderness. Labs: Laboratory Results - last 12 hr 05/26/18 05/27/18 05/27/18 22:06 00:08 02:20 WBC RBC Hgb Hct MCV MCH MCHC RDW Plt Count MPV Sodium Potassium Chloride Carbon Dioxide Anion Gap BUN Creatinine Estimated GFR POC Glucose 101 127 H 94 Random Glucose Calcium Magnesium 05/27/18 05/27/18 05/27/18 04:28 04:30 04:30 WBC 14.9 H RBC 3.93 L Hgb 12.5 L Hct 36.8 L MCV 93.5 MCH 31.8 MCHC 34.0 RDW 14.3 Plt Count 174 D MPV 7.5 Sodium 141 Potassium 4.4 Chloride 105 Carbon Dioxide 25.7 Anion Gap 10 BUN 20 H Creatinine 0.93 Estimated GFR 79 L POC Glucose 155 H Random Glucose 158 H Calcium 8.6 Magnesium 2.2 05/27/18 05/27/18 06:10 08:36 WBC RBC Hgb Hct MCV MCH MCHC RDW Plt Count MPV Sodium Potassium Chloride Carbon Dioxide Anion Gap BUN Creatinine Estimated GFR POC Glucose 141 H 97 Random Glucose Calcium Magnesium Result Diagrams: 05/27/18 04:30 05/27/18 04:30 Telemetry: NSR no acute changes - Plan (2) Aortic stenosis Plan: ASA, amiodarone pulm toileting OOB ambulate resume home BP meds (5) Diabetes Plan: insulin sliding scale resume metformin
[2018-05-27] MEDS: Amiodarone 200 MG Tablet PO SCH ×2 (08:59→20:32)
[2018-05-27] MEDS: Allopurinol 100 MG Tablet PO SCH ×2 (08:59→20:32)
[2018-05-27] MEDS: Metoprolol Tartrate 25 MG Tablet PO SCH ×3 (08:59→21:00)
[2018-05-27] MEDS ORDERED: ZINC GLUCONATE 30 MG PO SCH (09:00)
[2018-05-27] MEDS ORDERED: MAGNESIUM 200 MG PO SCH (09:00)
--- NOTE | 2018-05-27 09:47 | ECG ---
Date Performed: 05/27/2018 Time Performed: 05:21:34 PTAGE: 77 years EKG: Sinus rhythm Poor R wave progression - probable normal variant Lateral ST-T changes are nonspecific Q-waves are n ow noted in leads III and aVF Inferior infarction of undetermined age Borderline ECG Compared to PREVIOUS TRACING , Q-waves are now noted in the inferior leads and clinical correlation i s recommended. PREVIOUS TRACIN05/17/2018 04.53 DOCTOR: David Davis Interpretating Date/Time 05/27/2018 09:45:10
[2018-05-27] MEDS ORDERED: Sod Phosphate/Sod Biphosphate (Adult) Enema 133 ML Bottle RECTAL PRN (10:33)
[2018-05-27] MEDS ORDERED: Bisacodyl 10 MG Supp RECTAL PRN (10:33)
[2018-05-27] MEDS ORDERED: Dextrose 50% in Water 50 ML Vial IV.PUSH PRN (10:33)
--- NOTE | 2018-05-27 14:49 | P.DIET ---
Nutritional Evaluation Type of nutrition evaluation: initial [place] [facility] [place]: [place] [facility] [place] Education Objective - Diagnosis Mini Sternotomy, AVR - Objective Dietitian Reviewed in Medical Record: Current diet, Medical history Diet Order: Clear Liquid Objective Comments: 05/26 AVR Assessment Assessment: Pt is s/p AVR 05/26/18. [facility] [place]. Patient Navigator to provide education. Please Consult RD if complexities with diet education arise. Recommendations: 1. Patient Navigator to provide education 2. Please Consult RD if complexities with diet education arise
[2018-05-27] MEDS: Insulin NovoLOG Aspart Correctional Sugar Inj SQ SCH ×3 (15:08→22:18)
[2018-05-27] MEDS: Docusate Sodium 100 MG Capsule PO SCH (20:32)
[2018-05-28] MEDS: ceFAZolin Inj 2,000 MG in Sodium Chlor 0.9% Inj 80 ML IV.SIG SCH (00:44)
[2018-05-28] MEDS: Insulin NovoLOG Aspart Correctional Sugar Inj SQ SCH ×6 (02:09→22:09)
[2018-05-28 05:36] LABS: Baso % (Auto) 0.3 % (0.0-2.0); Eos # (Auto) 0.2 th/mm3 (0.0-0.4); Eos % (Auto) 1.6 % (0.0-4.0); Hematocrit 31.9 % (39.0-51.0); Hemoglobin 10.7 gm/dL (13.0-17.0); Lymph # (Auto) 0.9 th/mm3 (1.0-4.8); Lymph % (Auto) 7.4 % (9.0-44.0); Mean Corpuscular HGB Conc 33.5 % (32.0-36.0); Mean Corpuscular Volume 95.5 fL (80.0-100.0); Mean Platelet Volume 7.8 fL (7.0-11.0); Mono # (Auto) 1.2 th/mm3 (0.0-0.9); Mono % (Auto) 9.4 % (0.0-8.0); Neut % (Auto) 81.3 % (16.0-70.0); Platelet Count 146 th/mm3 (150-450); Potassium 4.1 meq/L (3.5-5.1); Red Blood Count 3.34 mil/mm3 (4.50-5.90); Red Cell Distribution Width 14.4 % (11.6-17.2); White Blood Count 12.3 th/mm3 (4.0-11.0)
[2018-05-28 05:40] LABS: Calcium 7.9 mg/dL (8.5-10.1); Carbon Dioxide 26.9 meq/L (21.0-32.0); Magnesium 2.1 mg/dL (1.5-2.5)
[2018-05-28] MEDS: Multivitamin/Minerals Therapeutic Tablet PO SCH (08:30)
[2018-05-28] MEDS: Docusate Sodium 100 MG Capsule PO SCH ×2 (08:30→20:13)
[2018-05-28] MEDS: Allopurinol 100 MG Tablet PO SCH ×2 (08:30→20:11)
[2018-05-28] MEDS: Amiodarone 200 MG Tablet PO SCH ×2 (08:30→20:09)
[2018-05-28] MEDS: Metoprolol Tartrate 25 MG Tablet PO SCH ×2 (08:30→20:10)
[2018-05-28] MEDS: Polyethylene Glycol 3350 17 GM Packet PO SCH (08:31)
--- NOTE | 2018-05-28 09:53 | P.PNCV ---
- Note Subjective/Hospital Course: 77-year-old male patient of Dr. Pitts and Dr. Barfield, intially seen , had presented to the emergency department on 05/16/2018. Apparently, developed some chest tightness while working outside, unresolved with rest, instructed to go to the emergency department. Upon exam by the ER physician, also reported that a mild chest tightness, occasional lightheadedness. He has been worked up in the past with known aortic stenosis. His prior echocardiogram from Dr. Pitts's office showed ejection fraction 54%, left ventricular hypertrophy, left atrial enlargement, moderate to severe aortic stenosis with an aortic valve area 0.8 cm2, peak gradient of 58, mild mitral regurgitation, and mild tricuspid regurgitation. We were consulted to evaluate for aortic valve replacement. PAST MEDICAL HISTORY: Includes aortic stenosis, diabetes mellitus type 2, gout, hyperlipidemia, hypertension, skin cancer, TIA, chronic back problems, insomnia, history of prostate cancer in 2006 with radiation. 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 05/26 pt electively admitted for surgery Aortic Valve Replacement with a 25 mm Medtronic Mosaic Cinch Tissue valve. extubated after surgery crystalloid 2500cc, cell saver 740cc, EBL 1500cc 05/27 c/o of tingling both hands R>L + radial pulses slight improvement weaning off cleviprex restart home meds 05/28 Doing well. Bilateral hand tingling likely related to his C-spine pathology. Improved this morning Chest tube and pacing wires removed without difficulty Rehab arrangements upon discharge Wean O2 and ambulate Objective: Vital Signs - 24 hr 05/27/18 11:00 05/27/18 11:26 05/27/18 13:52 Temperature 98.1 F Pulse Rate 75 80 Respiratory Rate 20 18 15 Blood Pressure 135/73 Pulse Oximetry 98 05/27/18 15:00 05/27/18 17:34 05/27/18 19:00 Temperature 98.3 F 98.2 F Pulse Rate 77 88 Respiratory Rate 20 18 18 Blood Pressure 122/65 131/60 Pulse Oximetry 05/27/18 19:47 05/27/18 20:00 05/27/18 21:00 Temperature Pulse Rate 77 79 80 Respiratory Rate 18 Blood Pressure Pulse Oximetry 95 05/27/18 23:00 05/28/18 03:00 05/28/18 04:16 Temperature 98.5 F 98.3 F Pulse Rate 75 78 75 Respiratory Rate 18 18 Blood Pressure 96/56 L 126/58 L Pulse Oximetry 94 L 05/28/18 05:00 05/28/18 06:00 05/28/18 07:39 Temperature Pulse Rate 76 74 79 Respiratory Rate 16 Blood Pressure Pulse Oximetry 96 Labs: Laboratory Results - last 12 hr 05/27/18 05/28/18 05/28/18 22:06 02:04 04:54 WBC 12.3 H RBC 3.34 L Hgb 10.7 L Hct 31.9 L MCV 95.5 MCH 32.0 MCHC 33.5 RDW 14.4 Plt Count 146 L MPV 7.8 Neut % (Auto) 81.3 H Lymph % (Auto) 7.4 L Page % (Auto) 9.4 H Eos % (Auto) 1.6 Baso % (Auto) 0.3 Neut # (Auto) 10.0 H Lymph # (Auto) 0.9 L Page # (Auto) 1.2 H Eos # (Auto) 0.2 Baso # (Auto) 0.0 WBC Differential . Differential Comment Auto diff final Sodium Potassium Chloride Carbon Dioxide Anion Gap BUN Creatinine Estimated GFR POC Glucose 131 H 82 Random Glucose Calcium Magnesium 05/28/18 05/28/18 04:54 05:53 WBC RBC Hgb Hct MCV MCH MCHC RDW Plt Count MPV Neut % (Auto) Lymph % (Auto) Page % (Auto) Eos % (Auto) Baso % (Auto) Neut # (Auto) Lymph # (Auto) Page # (Auto) Eos # (Auto) Baso # (Auto) WBC Differential Differential Comment Sodium 138 Potassium 4.1 Chloride 100 Carbon Dioxide 26.9 Anion Gap 11 BUN 21 H Creatinine 1.06 Estimated GFR 68 L POC Glucose 153 H Random Glucose 128 H Calcium 7.9 L Magnesium 2.1 Result Diagrams: 05/28/18 04:54 05/28/18 04:54 - Plan (2) Aortic stenosis Plan: ASA, amiodarone pulm toileting OOB ambulate resume home BP meds (5) Diabetes Plan: insulin sliding scale resume metformin
[2018-05-28] MEDS ORDERED: Insulin NovoLOG Aspart Correctional Sugar Inj SQ SCH (17:00)
[2018-05-28] MEDS: Acetaminophen 325 MG Tablet PO PRN ×2 (19:35→23:35)
[2018-05-29] MEDS: Acetaminophen 325 MG Tablet PO PRN ×4 (06:03→21:46)
[2018-05-29] MEDS: Allopurinol 100 MG Tablet PO SCH ×2 (08:24→20:38)
[2018-05-29] MEDS: Insulin NovoLOG Aspart Correctional Sugar Inj SQ SCH ×4 (08:24→21:43)
[2018-05-29] MEDS: Amiodarone 200 MG Tablet PO SCH ×2 (08:24→20:39)
[2018-05-29] MEDS: Polyethylene Glycol 3350 17 GM Packet PO SCH (08:24)
[2018-05-29] MEDS: Multivitamin/Minerals Therapeutic Tablet PO SCH (08:24)
[2018-05-29] MEDS: Docusate Sodium 100 MG Capsule PO SCH ×2 (08:25→20:38)
[2018-05-29] MEDS: Metoprolol Tartrate 25 MG Tablet PO SCH ×2 (08:25→20:39)
--- NOTE | 2018-05-29 09:40 | P.PNCV ---
- Note Subjective/Hospital Course: 77-year-old male patient of Dr. Pitts and Dr. Barfield, intially seen , had presented to the emergency department on 05/16/2018. Apparently, developed some chest tightness while working outside, unresolved with rest, instructed to go to the emergency department. Upon exam by the ER physician, also reported that a mild chest tightness, occasional lightheadedness. He has been worked up in the past with known aortic stenosis. His prior echocardiogram from Dr. Pitts's office showed ejection fraction 54%, left ventricular hypertrophy, left atrial enlargement, moderate to severe aortic stenosis with an aortic valve area 0.8 cm2, peak gradient of 58, mild mitral regurgitation, and mild tricuspid regurgitation. We were consulted to evaluate for aortic valve replacement. PAST MEDICAL HISTORY: Includes aortic stenosis, diabetes mellitus type 2, gout, hyperlipidemia, hypertension, skin cancer, TIA, chronic back problems, insomnia, history of prostate cancer in 2006 with radiation. 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 05/26 pt electively admitted for surgery Aortic Valve Replacement with a 25 mm Medtronic Mosaic Cinch Tissue valve. extubated after surgery crystalloid 2500cc, cell saver 740cc, EBL 1500cc 05/27 c/o of tingling both hands R>L + radial pulses slight improvement weaning off cleviprex restart home meds 05/28 Doing well. Bilateral hand tingling likely related to his C-spine pathology. Improved this morning Chest tube and pacing wires removed without difficulty Rehab arrangements upon discharge Wean O2 and ambulate 05/29 Doing well On RA Awaiting discharge to rehab facility Objective: Vital Signs - 24 hr 05/28/18 10:00 05/28/18 11:00 05/28/18 12:00 Temperature 98.4 F Pulse Rate 74 76 80 Respiratory Rate 18 Blood Pressure 99/52 L Pulse Oximetry 92 L 05/28/18 13:00 05/28/18 13:48 05/28/18 14:00 Temperature Pulse Rate 83 85 79 Respiratory Rate 16 Blood Pressure Pulse Oximetry 05/28/18 15:00 05/28/18 16:00 05/28/18 17:00 Temperature 98.4 F Pulse Rate 79 82 82 Respiratory Rate 18 Blood Pressure 131/58 L Pulse Oximetry 96 05/28/18 18:00 05/28/18 19:00 05/28/18 19:50 Temperature Pulse Rate 81 82 80 Respiratory Rate 18 Blood Pressure Pulse Oximetry 05/28/18 20:00 05/28/18 21:00 05/28/18 22:00 Temperature 99.7 F H Pulse Rate 82 82 72 Respiratory Rate 19 Blood Pressure 134/58 L Pulse Oximetry 96 05/28/18 23:00 05/28/18 23:30 05/29/18 00:00 Temperature 99.7 F H Pulse Rate 80 79 82 Respiratory Rate 19 Blood Pressure 111/54 L Pulse Oximetry 96 05/29/18 01:00 05/29/18 02:00 05/29/18 03:00 Temperature 97.7 F Pulse Rate 74 73 73 Respiratory Rate 18 Blood Pressure 120/56 L Pulse Oximetry 95 05/29/18 04:00 05/29/18 05:00 05/29/18 06:00 Temperature Pulse Rate 69 91 H 74 Respiratory Rate Blood Pressure Pulse Oximetry 05/29/18 07:00 05/29/18 09:09 Temperature Pulse Rate 76 74 Respiratory Rate 18 Blood Pressure Pulse Oximetry 96 Labs: Laboratory Results - last 12 hr 05/26/18 05/29/18 06:39 07:37 POC Glucose 145 H MTS Gel Crossmatch See Detail Result Diagrams: 05/28/18 04:54 05/28/18 04:54 - Plan (2) Aortic stenosis Plan: ASA, amiodarone pulm toileting OOB ambulate resume home BP meds (5) Diabetes Plan: insulin sliding scale resume metformin
[2018-05-29] MEDS: Ibuprofen 200 MG Tablet PO PRN ×2 (10:37→20:44)
[2018-05-29 15:22] VITALS: O2SAT 97
[2018-05-30 01:07] VITALS: RESP 16
[2018-05-30] MEDS: Acetaminophen 325 MG Tablet PO PRN ×2 (06:41→11:44)
[2018-05-30] MEDS: Insulin NovoLOG Aspart Correctional Sugar Inj SQ SCH ×2 (09:11→11:52)
[2018-05-30] MEDS: Amiodarone 200 MG Tablet PO SCH (09:13)
[2018-05-30] MEDS: Allopurinol 100 MG Tablet PO SCH (09:13)
[2018-05-30] MEDS: Docusate Sodium 100 MG Capsule PO SCH (09:14)
[2018-05-30] MEDS: Multivitamin/Minerals Therapeutic Tablet PO SCH (09:14)
[2018-05-30] MEDS: Metoprolol Tartrate 25 MG Tablet PO SCH (09:15)
--- NOTE | 2018-05-30 10:40 | P.DS ---
Date of admission: 05/26/18 05:27 Primary care physician: David Barfield MD Attending physician on discharge: Sam Hamilton Anticipated date of discharge: 05/30/18 Brief History from admission: 77-year-old male patient of Dr. Pitts and Dr. Barfield, intially seen , had presented to the emergency department on 05/16/2018. Apparently, developed some chest tightness while working outside, unresolved with rest, instructed to go to the emergency department. Upon exam by the ER physician, also reported that a mild chest tightness, occasional lightheadedness. He has been worked up in the past with known aortic stenosis. His prior echocardiogram from Dr. Pitts's office showed ejection fraction 54%, left ventricular hypertrophy, left atrial enlargement, moderate to severe aortic stenosis with an aortic valve area 0.8 cm2, peak gradient of 58, mild mitral regurgitation, and mild tricuspid regurgitation. We were consulted to evaluate for aortic valve replacement. PAST MEDICAL HISTORY: Includes aortic stenosis, diabetes mellitus type 2, gout, hyperlipidemia, hypertension, skin cancer, TIA, chronic back problems, insomnia, history of prostate cancer in 2006 with radiation. 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 DS: Diagnosis - Discharge Diagnosis (1) S/P aortic valve replacement Status: Acute (2) Aortic stenosis Status: Acute (3) Atypical chest pain Status: Acute (4) Chest pain Status: Acute (5) Diabetes Status: Acute (6) Hyperlipidemia Status: Acute (7) Hypertension Status: Acute DS: Summary Hospital Course: 77-year-old male patient of Dr. Pitts and Dr. Barfield, intially seen , had presented to the emergency department on 05/16/2018. Apparently, developed some chest tightness while working outside, unresolved with rest, instructed to go to the emergency department. Upon exam by the ER physician, also reported that a mild chest tightness, occasional lightheadedness. He has been worked up in the past with known aortic stenosis. His prior echocardiogram from Dr. Pitts's office showed ejection fraction 54%, left ventricular hypertrophy, left atrial enlargement, moderate to severe aortic stenosis with an aortic valve area 0.8 cm2, peak gradient of 58, mild mitral regurgitation, and mild tricuspid regurgitation. We were consulted to evaluate for aortic valve replacement. PAST MEDICAL HISTORY: Includes aortic stenosis, diabetes mellitus type 2, gout, hyperlipidemia, hypertension, skin cancer, TIA, chronic back problems, insomnia, history of prostate cancer in 2007 with radiation. 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 05/26 pt electively admitted for surgery Aortic Valve Replacement with a 25 mm Medtronic Mosaic Cinch Tissue valve. extubated after surgery crystalloid 2500cc, cell saver 740cc, EBL 1500cc 05/27 c/o of tingling both hands R>L + radial pulses slight improvement weaning off cleviprex restart home meds 05/28 Doing well. Bilateral hand tingling likely related to his C-spine pathology. Improved this morning Chest tube and pacing wires removed without difficulty Rehab arrangements upon discharge Wean O2 and ambulate 05/29 Doing well On RA Awaiting discharge to rehab facility 05/30 D/C Rehab - Time Spent with Patient Total time spent providing and/or coordinating discharge services: Less than 30 minutes - Quality: VTE Deep Vein Thrombosis/Pulmonary Embolism Present on Admission: No Exam Vital signs: Vital Signs 05/29/18 11:00 05/29/18 12:00 05/29/18 13:00 Temperature 97.8 F Pulse Rate 79 81 78 Respiratory Rate 16 Blood Pressure 121/57 L Pulse Oximetry 95 05/29/18 14:00 05/29/18 15:00 05/29/18 16:00 Temperature 98.2 F Pulse Rate 77 78 76 Respiratory Rate 16 Blood Pressure 113/56 L Pulse Oximetry 97 05/29/18 17:00 05/29/18 18:00 05/29/18 19:00 Temperature 98.1 F Pulse Rate 75 86 76 Respiratory Rate 18 Blood Pressure 111/53 L Pulse Oximetry 97 05/29/18 20:00 05/29/18 21:00 05/29/18 21:45 Temperature Pulse Rate 76 74 Respiratory Rate Blood Pressure Pulse Oximetry 97 05/29/18 22:00 05/29/18 23:00 05/30/18 00:00 Temperature Pulse Rate 76 68 64 Respiratory Rate Blood Pressure Pulse Oximetry 05/30/18 00:40 05/30/18 01:00 05/30/18 02:00 Temperature 98.2 F Pulse Rate 62 62 67 Respiratory Rate 16 Blood Pressure 118/56 L Pulse Oximetry 97 05/30/18 03:00 05/30/18 04:00 05/30/18 05:00 Temperature 98.2 F Pulse Rate 84 70 66 Respiratory Rate 16 Blood Pressure 120/56 L Pulse Oximetry 97 05/30/18 06:00 05/30/18 09:19 Temperature Pulse Rate 65 Respiratory Rate Blood Pressure Pulse Oximetry 97 Intake & Output 05/29/18 05/30/18 05/30/18 18:59 06:59 18:59 Intake Total 1440 / 1440 420 / 420 Output Total 1600 / 1600 1200 / 1200 Balance -160 / -160 -780 / -780 Intake: Oral 1440 / 1440 420 / 420 Output: Urine 1600 / 1600 1200 / 1200 Other: Date of Last Bowel Movement 05/29/18 # Bowel Movements 1 Results Procedures completed during hospitalization: Aortic Valve Replacement with a 25 mm Medtronic Mosaic Cinch Tissue valve. Labs on day of discharge: Labs from last 24 hours 05/30/18 05/29/18 05/29/18 07:55 21:19 15:01 POC Glucose 144 H 186 H 83 05/29/18 11:22 POC Glucose 167 H - Impressions ITS Impressions Chest X-Ray 05/27/18 05:00 CONCLUSION: Low lung volumes with mild bibasilar atelectasis. Discharge Plan - Discharge Disposition Patient Disposition: 62 Rehab Inpatient - Discharge Condition Condition: Good - Discharge Order Discharge Orders: Discharge Order (Routine); Ordered 05/30/18 Ordered By: Sam Hamilton - Physicians Team Primary Care Provider: David Barfield Attending Provider: Sam Hamilton Other Providers: Sonia Pitts MD ; [facility] - Rxs /Orders / Referrals /Forms Prescriptions: New amiodarone 200 mg Tablet 200 mg PO Q12HR Qty: 0 RF: 0 clopidogrel [Plavix] 75 mg Tablet 75 mg PO DAILY Qty: 0 RF: 0 docusate sodium [DOK] 100 mg Capsule 100 mg PO BID RF: 0 furosemide [Lasix] 20 mg Tablet 40 mg PO DAILY 10 Days Qty: 20 RF: 0 hydrocodone-acetaminophen 5-325 mg Tablet 2 tab PO Q4H PRN (Reason: Acute Pain 6-10) RF: 0 ibuprofen 200 mg Tablet 200 mg PO Q4H PRN (Reason: Pain Scale 1 To 5) RF: 0 insulin aspart U-100 [Novolog U-100 Insulin aspart] 100 unit/mL Solution 0 unit Sub-Q ACHS RF: 0 magnesium hydroxide [Milk of Magnesia] 400 mg/5 mL Suspension 30 ml PO DAILY RF: 0 metoprolol tartrate 25 mg Tablet 25 mg PO BID Qty: 0 RF: 0 pantoprazole 40 mg Tablet,Delayed Release (Dr/Ec) 40 mg PO DAILY@06 RF: 0 polyethylene glycol 3350 17 gram Powder In Packet 17 gm PO DAILY RF: 0 potassium chloride 8 mEq Capsule, Extended Release 16 meq PO DAILY 10 Days Qty: 20 RF: 0 sennosides [Senna Lax] 8.6 mg Tablet 8.6 mg PO HS RF: 0 Continue allopurinol 100 mg Tablet 100 mg PO BID ascorbic acid (vitamin C) [Vitamin C] 500 mg Tablet 500 mg PO BID aspirin 81 mg Tablet,Chewable 81 mg PO DAILY atorvastatin [Lipitor] 20 mg Tablet 20 mg PO HS coenzyme Q10 [Co Q-10] 100 mg Capsule 100 mg PO DAILY losartan 100 mg Tablet 100 mg PO DAILY magnesium 200 mg Tablet 200 mg PO DAILY metformin 500 mg Tablet 1,000 mg PO BID zinc gluconate 10 mg Lozenge 30 mg PO DAILY Referrals: David Barfield MD [Primary Care Provider] - See Instructions Sonia Pitts MD [Physician] - See Instructions - Discharge Instructions Patient Printed Instructions: Aortic Valve Replacement (DC) Additional Instructions: PREVENA Single Use Negative Wound Therapy System Caregiver Instruction Sheet 1. A Prevena dressing system was applied to the chest incision during surgery , to promote wound healing. It works via a suction device (negative pressure wound therapy) to remove low to moderate levels of exudate (drainage) and infectious materials. We recommend that the device stay in place for up to seven days, from day of surgery. 2. Day of Surgery 05/26/18 Day of Removal ___06/02/18 3. The dressing should only be removed by a health animal care giver. Please arrange removal of device to coincide with Home Health visit and or with Nursing staff at Rehab 4. If skin reddening or irritation of skin occurs, or excessive drainage, please notify the Cardiovascular Surgeons office at [phone]. 5. Light showering is permissible; however the pump should be disconnected and placed in safe location, where it will not get wet. The dressing should not be exposed to direct spray or submerged in water. No bath tub / shower only. Ensure the end of the tubing attached to the dressing is facing down so that water does not enter the top of the tube. 6. To remove Prevena dressing: press purple button to turn off device / remove the suction. Then disconnect the tubing from the pump. The fixation strips should be stretched away from the skin and the dressing lifted at one corner and peeled back until it has been fully removed. 7. After removal, it is ok to shower daily using liquid dial soap and clean wash cloth, rinse and pat dry, and leave incision open to air dry. For any concerns regarding Prevena dressing, and or wounds, please contact Kim Hunter, patient navigator at [phone] or notify the Cardiovascular Surgeons office at [phone]. Incentive spirometry Q1 hr x 10, while awake, also use acapella device hourly whole awake Sternal Breast Bone Precautions: NO pushing or pulling, ( pt must use sternal pillow to support chest with all activities and with coughing ( takes up to 3 months breast bone to heal ) Daily incision care: ok to shower daily, no tub bath. Wash all incisions with liquid dial soap, clean wash cloth to each site, rinse and pat dry. Observe for any signs of infection, such as drainage which is dark yellow, agudelo, green or foul smelling. Immediately report to the surgeon any drainage from the chest incision, or legs, and for any abnormal drainage from the chest tube sites. Notify surgeon if any temp >101.5 degrees F. When specialty dressing removed/ or if you do not have one, continue to shower daily as above, then rinse and pat incision dry and paint with betadine daily x 5 days. Allow steri strips to fall off if you have any. Avoid lotions, creams, salves, oils, etc. for the first month Please see attached forms for additional instructions regarding post Open Heart specialty wound vacuum dressings. BHARATH or Prevena , Dressing to be removed by Nursing staff on ___//18____ F/U appointment: as per DC instructions: PCP in 2 weeks, CV surgeon 2 weeks, Hiv/Aids Care Nurse 3-4 weeks For any questions regarding incisions/ dressing / meds / post op care or above Symptoms, Wednesday 8am-5pm Heart & Vascular Surgery Office ( Dr. Hamilton & Dr. Chew), After Hours / Nights (5pm -8am) Weekends and Holidays Please call [facility] Cardiac Intermediate Care Unit (CIC) Charge Nurse
[2018-05-30] MEDS ORDERED: Potassium Chloride 8 MEQ ER Capsule PO ONE (11:45)
[2018-05-30] MEDS ORDERED: Furosemide 40 MG Tablet PO ONE (11:45)
[2018-05-30] MEDS ORDERED: Furosemide 20 MG Tablet PO ONE (11:45)
[2018-05-30 11:52] VITALS: BP 126/60; TEMP 98.1
[2018-05-30 16:33] VITALS: PULSE 72
[2018-05-30] MEDS: Polyethylene Glycol 3350 17 GM Packet PO SCH (16:33)
== END 2018-05-30 16:58 ==
LOC: HSDI 05:27 → HCVI 11:51 → HCPC 05-27 10:43
PROVIDERS: ADMIT Thoracic Surgery (Cardiothoracic Vascular Surgery); ATTEND Thoracic Surgery (Cardiothoracic Vascular Surgery)
PROC: MINIAVR (2018-05-26 07:21)